=== PATIENT | male | born 1950 | race Caucasian/White ===

== ENCOUNTER 2020-05-08 09:38 | Inpatient (IN) ==
[2020-05-08] MEDS ORDERED: SODIUM CHLORIDE 0.9% 1000ML 1,000 ML IV ONE (10:07)
--- NOTE | 2020-05-08 10:10 | Emergency Department Note ---
Impression & Plan Sialadenitis, Hairy cell leukemia, Submandibular lymphadenitis, Pancytopenia ED Provider Note NAME: REBECCA BROWNLEE AGE: 69 SEX: M : 1950 ARRIVES VIA: Walk-In INFORMANT: Patient ED PROVIDER(S): Ihsan Pettit DO CHIEF COMPLAINT: Swelling of the left side of the neck HPI: Patient is a 69-year-old male who presents the ER for swelling of the left side of his neck. This past he had a filling replaced on his left posterior lower molar as had fallen out. He noticed swelling on the left side of his neck about 2 days ago below the jawline. He has lymphoma. He had a port placed yesterday by Dr. Valentin from the right side. He denies any fevers. No headache chest pain shortness of breath nausea vomiting or diarrhea. No loss of taste or smell. No other exacerbating or remitting factors. ROS: See above HPI for pertinent positives & negatives. A total of 10 systems reviewed and were otherwise negative. PAST MEDICAL HISTORY:See Below PAST SURGICAL HISTORY:See Below FAMILY HISTORY:See Below SOCIAL HISTORY:See Below HOME MEDICATIONS:See Below ALLERGIES:See Below VITALS:See Below PHYSICAL EXAMINATION: GENERAL: Sitting up in bed, alert, well appearing, well nourished, no distress, non-toxic EYE EXAM: normal conjunctiva. PERRL and EOM's grossly intact. OROPHARYNX: no exudate, no erythema, lips, buccal mucosa, and tongue normal and mucous membranes are moist NECK: supple, no nuchal rigidity, no adenopathy, non-tender.Swelling below the left mid mandible. CHEST: Port located along right upper chest tracking cephalad LUNGS: Clear to auscultation. Normal chest wall mechanics HEART: no murmurs, S1 normal and S2 normal ABDOMEN: abdomen soft, non-tender, normo-active bowel sounds, no masses, no rebound or guarding. UPPER EXTREMITIES: upper extremities are grossly normal. LOWER EXTREMITIES: No pitting edema. NEURO EXAM: Normal sensorium, cranial nerves II-XII grossly intact, normal speech, no gross weakness of arms, no gross weakness of legs. 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 IV was established blood work was obtained. Labs were obtained and showed a white cou nt of 900 and hemoglobin of 10 with an absolute neutrophil count of 600. BMP was unremarkable. T bili slightly elevated at 1.7. LFTs was unremarkable. CT neck shows questionable sialoadenitis with swelling encroaching on the airway. Patient with his neutropenia was given broad-spectrum IV antibiotics and IV fluids. Discussed with hospitalist and patient will be admitted for further work-up. He was given IV fluids, IV Zosyn and IV daptomycin. Triage Nursing notes reviewed. Prior medical records reviewed Vital Signs: reviewed and remarkable for no significant abnormalities Differential diagnosis: Differential diagnosis includes etiologies such as sepsis, UTI, pneumonia, metabolic, electrolyte abnormalities, cardiac sources, intracerebral event, toxicologic, neurological, as well as others were entertained. ER treatment provided: See below Diagnostics interpreted by me: ECG: none Cardiac Monitoring: An order was placed for continuous cardiac monitoring. The monitor shows a rate of 66 with sinus rhythm. Laboratory studies: As stated above and show below. Imaging studies: CT the neck as discussed above Consultation(s): Discussed with [facility] hospitalist for further evaluation Discussed with Dr. Yokr from hematology oncology agrees with admission and further evaluation ED COURSE: Procedures: none Critical Care: None Past Med/Surg History Medical History (Updated 05/08/20 @ 15:58 by Ihsan Pettit DO) Hairy cell leukemia [place] CHEMO 35 YEARS AGO (CURRENLTY DX WITH AGAIN) History of depression Hx of hematuria Surgical History Family history of malignant hyperthermia SECOND COUSIN DX WITH (NEVER HAD ANY ISSUES) History of cataract surgery RT History of colonoscopy History of cystoscopy History of tonsillectomy and adenoidectomy Tumor BENIGN TUMORS REMOVED FROM BACK Family History Brother Family hx colonic polyps Coronary heart disease Father Cancer Prostate Social History Smoking Status: Never smoker Second Hand Exposure: No; Do You Dip or Chew Tobacco: No; Tobacco Cessation Education Requested by Patient: No Hx Alcohol Use: No Hx Substance Use: No Preferred Language: Latvian Communication Ability: Effective Stage Technician Required: No Beliefs That Will Affect Care: None Current Living Situation: Alone Other Information That Helps Us Care for You: No Feels Safe at Home: Yes Safety Concerns: Feels Safe At This Time Assistive Devices: Glasses Allergies Allergies Allergy/AdvReac Type Severity Reaction Status Date / Time No Known Allergies Allergy Verified 05/08/20 11:46 Home Meds Home Medications Medication Instructions Recorded Confirmed Centrum Silver Ultra Men's 1 tab PO QDL 05/02/20 05/08/20 Results & Data (ED) Vital Signs Vital Signs - 24 hr 05/08/20 09:43 05/08/20 11:23 05/08/20 12:00 Temperature 37.2 C Temperature Source Oral Pulse Rate 78 71 Pulse Rate [Apical] 67 Pulse Rate from SpO2 Sensor 68 Respiratory Rate 18 18 16 Respiratory Effort / Characteristics Non-Labored Spontaneous Respiratory Depth Normal Blood Pressure 142/81 H 139/69 Blood Pressure [Right Arm] 134/69 Blood Pressure Mean 101 86 Blood Pressure Mean [Right Arm] 90 Blood Pressure Position Sitting Pulse Oximetry 99 97 98 Oxygen Delivery Method Room Air Room Air Room Air Sepsis Recent Fever Within 48 Hours No Sepsis New/Unexplained Change in Mental Status No Sepsis Action Taken by Nursing No Action Required 05/08/20 12:30 05/08/20 13:00 05/08/20 13:30 Temperature Temperature Source Pulse Rate 68 68 66 Pulse Rate [Apical] Pulse Rate from SpO2 Sensor 68 67 Respiratory Rate 15 16 18 Respiratory Effort / Characteristics Respiratory Depth Blood Pressure 135/70 Blood Pressure [Right Arm] Blood Pressure Mean 84 Blood Pressure Mean [Right Arm] Blood Pressure Position Pulse Oximetry 96 97 Oxygen Delivery Method Room Air Sepsis Recent Fever Within 48 Hours Sepsis New/Unexplained Change in Mental Status Sepsis Action Taken by Nursing 05/08/20 14:00 05/08/20 14:30 05/08/20 15:00 Temperature Temperature Source Pulse Rate 67 68 69 Pulse Rate [Apical] Pulse Rate from SpO2 Sensor Respiratory Rate 18 13 20 Respiratory Effort / Characteristics Respiratory Depth Blood Pressure 158/68 H Blood Pressure [Right Arm] Blood Pressure Mean 86 Blood Pressure Mean [Right Arm] Blood Pressure Position Pulse Oximetry Oxygen Delivery Method Sepsis Recent Fever Within 48 Hours Sepsis New/Unexplained Change in Mental Status Sepsis Action Taken by Nursing 05/08/20 15:18 05/08/20 15:30 Temperature Temperature Source Pulse Rate 66 Pulse Rate [Apical] Pulse Rate from SpO2 Sensor 67 Respiratory Rate 20 Respiratory Effort / Characteristics Respiratory Depth Blood Pressure Blood Pressure [Right Arm] Blood Pressure Mean Blood Pressure Mean [Right Arm] Blood Pressure Position Pulse Oximetry 97 96 Oxygen Delivery Method Room Air Room Air Sepsis Recent Fever Within 48 Hours Sepsis New/Unexplained Change in Mental Status Sepsis Action Taken by Nursing Laboratory Data Result diagrams: 05/08/20 11:24 05/08/20 11:24 Lab Results 05/08/20 05/08/20 05/08/20 Range/Units 11:24 11:24 11:24 WBC 0.91 L* (4.8-10.8) K/uL RBC 3.36 L (4.7-6.1) M/uL Hgb 10.1 L (14.0-18.0) g/dL Hct 30.5 L (42-52) % MCV 90.8 (80-100) fL MCH 30.1 (25-34) pg MCHC 33.1 (32-36) g/dL RDW Std Deviation 52.0 H (36.4-46.3) fL RDW Coeff of Dale 15.6 H (11.5-14.5) % Plt Count 43 L (130-400) K/uL MPV 8.2 (7.4-10.4) fL Immature Gran % (Auto) 0.0 % Neut % (Auto) 69.2 % Lymph % (Auto) 29.7 % [place] % (Auto) 1.1 % Eos % (Auto) 0.0 % Baso % (Auto) 0.0 % Neut # (Auto) 0.63 L* (1.4-6.5) K/uL Lymph # (Auto) 0.27 L (1.2-3.4) K/uL [place] # (Auto) 0.01 L (0.11-0.59) K/uL Eos # (Auto) 0.00 (0-0.5) K/uL Baso # (Auto) 0.00 (0-0.2) K/uL Immature Gran # (Auto) 0.00 (0.00-0.02) K/uL Tear Drop Cells 1+ Ovalocytes 1+ Sodium 138 (136-145) mmol/L Potassium 4.4 (3.5-5.1) mmol/L Chloride 105 (98-107) mmol/L Carbon Dioxide 31 (21-32) mmol/L Anion Gap 2.0 L (3-11) BUN 22 H (7-18) mg/dl Creatinine 1.14 (0.6-1.4) mg/dl Est Cr Clr Drug Dosing 71.6 ml/min Est GFR ( Amer) 75.1 Est GFR (Non-Af Amer) 64.8 BUN/Creatinine Ratio 19.1 (10-20) Glucose 101 H (70-99) mg/dl Calcium 8.6 (8.5-10.1) mg/dl Total Bilirubin 1.7 H (0.2-1) mg/dl Direct Bilirubin 0.3 H (0-0.2) mg/dl AST 16 (15-37) U/L ALT 28 (12-78) U/L Alkaline Phosphatase 58 (45-117) U/L Total Protein 6.8 (6.4-8.2) gm/dl Albumin 3.8 (3.4-5.0) gm/dl Globulin 3.0 (2.5-4.0) gm/dl Albumin/Globulin Ratio 1.3 (0.9-2) Administered Medications Dexamethasone (Dexamethasone Sod Inj 10 Mg/Ml Vial) 10 mg IV Q6H NGA Stop: 06/07/20 14:31 Last Admin: 05/08/20 15:15 Dose: 10 mg Documented by: [id number] Discontinued Medications Sodium Chloride (Nss 1000ml) 1,000 mls @ 999 mls/hr IV .Q1H1M ONE Stop: 05/08/20 11:07 Last Infusion: 05/08/20 12:21 Dose: 0 mls/hr Documented by: [id number] Admin: 05/08/20 11:20 Dose: 999 mls/hr Documented by: [id number] Piperacillin Sod/Tazobactam Sod (Zosyn) 4.5 gm in 120 mls @ 240 mls/hr IV NOW ONE Stop: 05/08/20 13:57 Last Infusion: 05/08/20 14:44 Dose: 0 mls/hr Documented by: [id number] Admin: 05/08/20 14:14 Dose: 240 mls/hr Documented by: [id number] Daptomycin 500 mg/ Syringe 10 mls @ 5 mls/min IV NOW ONE; Protocol Stop: 05/08/20 13:29 Last Admin: 05/08/20 14:12 Dose: 5 mls/min Documented by: [id number] Ioversol (Ioversol 100ml) 95 ml IV ONCE ONE Stop: 05/08/20 12:29 Last Admin: 05/08/20 12:28 Dose: 95 ml Documented by: [id number] Discharge Plan Visit Data Chief Complaint: Facial Injury/Pain Stated Complaint: LEUKEMIA PATIENT, INFECTION, NEEDS ANTIBIOTICS ED Provider: Ihsan Pettit Discharge Problem: Sialadenitis, Hairy cell leukemia, Submandibular lymphadenitis, Pancytopenia Discharge Instructions Interventions: ED Discharge Assessment Last Done: 05/08/20 15:33 Forms Stand Alone Forms: [employer] Prescriptions Prescriptions: No Action Centrum Silver Ultra Men's 300-600-300 mcg Tablet 1 tab PO QDL RF: 0 Referrals Referrals: Adrien Jones MD [Primary Care Provider] - Discharge Problem: Hairy cell leukemia Qualifiers: Leukemia Active/Remission status: without remission Qualified Code(s): C91.40 - Hairy cell leukemia not having achieved remission
[2020-05-08 11:53] LABS: Mean Corpuscular Hgb Conc 33.1 g/dL (32-36); Mean Platelet Volume 8.2 fL (7.4-10.4); Platelet Count 43 K/uL (130-400)
[2020-05-08 11:59] LABS: Albumin Level 3.8 gm/dl (3.4-5.0); BUN Creatinine Ratio 19.1 (10-20); Calcium 8.6 mg/dl (8.5-10.1); Creatinine Clr Calc Pharmacy 71.6 ml/min; Est GFR (African American) 75.1; Est GFR (Non-African American) 64.8; Hematocrit (blood only) 30.5 % (42-52); Hemoglobin 10.1 g/dL (14.0-18.0); Lymphocytes # (auto) 0.27 K/uL (1.2-3.4); Lymphocytes % (auto) 29.7 %; Mean Corpuscular Hemoglobin 30.1 pg (25-34); Mean Corpuscular Volume 90.8 fL (80-100); Monocytes # (auto) 0.01 K/uL (0.11-0.59); Monocytes % (auto) 1.1 %; Neutrophils # (auto) 0.63 K/uL (1.4-6.5); Neutrophils % (auto) 69.2 %; Potassium 4.4 mmol/L (3.5-5.1); RDW Coefficient of Variation 15.6 % (11.5-14.5); Red Blood Count 3.36 M/uL (4.7-6.1); White Blood Count 0.91 K/uL (4.8-10.8)
[2020-05-08 12:01] LABS: Albumin Globulin Ratio 1.3 (0.9-2); Bilirubin,Total 1.7 mg/dl (0.2-1); Total Protein 6.8 gm/dl (6.4-8.2)
[2020-05-08 12:03] LABS: Ovalocytes 1+; Tear Drop Cells 1+
[2020-05-08] MEDS ORDERED: IOVERSOL 100ml IV ONE (12:28)
--- NOTE | 2020-05-08 12:53 | CT Scan Report ---
CT soft tissue neck w con CT DOSE: 562.83 mGy.cm CLINICAL HISTORY: Left-sided neck swelling. History of dental procedure. Patient with CLL. TECHNIQUE: Helical images were acquired during intravenous administration of 95 cc of Optiray 320. A dose lowering technique was utilized adhering to the principles of ALARA. COMPARISON STUDY: None. FINDINGS: The visualized portions of the lung apices are unremarkable. No thyroid masses are visualized. There is edema within the left submandibular gland. There is also edema within the left sublingual gl and. The findings are consistent with a sialoadenitis. There is thickening of the platysmas muscle. There is subcutaneous edema within the left neck. There is mild mass effect on the left vallecula. There is minimal edema within the left parapharyngeal spac e. There are no pathologically enlarged cervical lymph nodes. No necrotic nodes are evident. There are no fluid collections suspicious for abscess. There are bilateral dental apical lucencies, but this is not likely the etiology of the patient's inf lammatory change. Inflammatory changes are present within the right axillary sinus. There is a right internal jugular central venous catheter. This study was reviewed with a fellow radiologist. IMPRESSION: 1. Inflammatory changes within the neck, characterized by subcutaneous edema, thickening of the platy smas muscle, mild left parapharyngeal space edema with mild mass effect on the left vallecula. In add ition there are inflammatory changes within the left submandibular gland and left submandibular gland . The findings are likely secondary to a sialoadenitis. 2. No evidence of focal soft tissue abscess 3. Bilateral dental apical lucencies, but this finding is not likely the etiology of the patient's in flammatory changes. ACT 112: Negative or not required by law. Electronically signed by: Romaine Pate M.D. 05/08/2020 12:52 PM
[2020-05-08] MEDS ORDERED: PIPERACILL/TAZOBAC CONSULT ACTIVE PRN (13:28)
[2020-05-08] MEDS ORDERED: DAPTOmycin 500 MG in SYRINGE 0 ML IV ONE (13:28)
[2020-05-08] MEDS ORDERED: PIPERACILLIN/TAZOBACTAM 4.5 GM/120 ML BAG IV ONE (13:28)
[2020-05-08] MEDS ORDERED: DEXAMETHASONE SOD INJ 10 MG/ML VIAL IV SCH (14:32)
--- NOTE | 2020-05-08 14:47 | History & Physical Report ---
Date of Service May 08, 2020 Assessment & Plan (1) Sialadenitis: (2) Submandibular lymphadenitis: This is a 69-year-old male who with significant past medical history hairy cell leukemia who presents to ED secondary to left-sided face/neck pain x3 days. Admit to PCU consulted ENT - Dr. Delaney - discussed with her continue IV antibiotics with Daptomycin and zosyn IV Dexamethasone 10mg q6hr - per Dr. 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 Gerardo Had port placed yesterday, plan to start chemo 05/14 (5) DVT prophylaxis: SCD/teds secondary to thrombocytopenia Disposition: Admit to PCU Follow-up: PCP Dr. Jones upon discharge Patient was seen and examined in collaboration with Dr. Landin, please see addendum History of Present Illness Chief Complaint: Left-sided face/neck pain x3 days. Primary Care Provider: Adrien Jones MD This is a 69-year-old male who with significant past medical history hairy cell leukemia who presents to ED secondary to left-sided face/neck pain x3 days. Of significance patient has a past medical history of hairy cell leukemia initially diagnosed in 1989. This is his third relapse. He had a port placed by Dr. Valentin yesterday. He follows with [facility] oncology. He had a dental appointment for a, "filling," 5 days ago. 2 days after the procedure he started to notice pain to left tooth where he had dental work done on his lower molar along with swelling to the face and neck. Swelling and pain progressed. He called his oncologist requesting antibiotics, but was referred back to his dentist. He was tired of going back and forth and therefore just came to ED. He denies any shortness of breath but does admit to mild difficulty swallowing. He denies any fever, chills, sweats, lightheadedness, dizziness, chest pain, shortness of breath, nausea, vomiting, diarrhea. He overall has had decreased appetite. He is to start chemotherapy next Thursday. He did not take any oral antibiotics prior to dental procedure. In ED patient remained hemodynamically stable. Lab abnormalities notable for neutropenia 0.91 with an ANC of 0.63, H&H 10.1 and 30.5, platelet 43, BUN 22, creatinine 1.14, glucose 101, total bilirubin 1.7. Soft tissue neck CT: Inflammatory changes within the neck, characterized by subcutaneous edema, thickening of the platysmas muscle, mild left parapharyngeal space edema with mild mass effect on the left vallecula. In addition there are inflammatory changes within the left submandibular gland and left submandibular gland. The findings are likely secondary to a sialoadenitis. 2. No evidence of focal soft tissue abscess 3. Bilateral dental apical lucencies, but this finding is not likely the etiology of the patient's inflammatory changes. Blood cultures were obtained and he was started on broad-spectrum IV antibiotics with daptomycin and Zosyn. Allergies Allergy/AdvReac Type Severity Reaction Status Date / Time No Known Allergies Allergy Verified 05/08/20 11:46 Home Medications Home Medications Medication Instructions Recorded Confirmed Type Centrum Silver Ultra Men's 1 tab PO QDL 05/02/20 05/08/20 History Past Med/Surg History Medical History (Updated 05/08/20 @ 15:58 by Ihsan Pettit DO) Hairy cell leukemia TX CHEMO 35 YEARS AGO (CURRENLTY DX WITH AGAIN) History of depression Hx of hematuria Surgical History Family history of malignant hyperthermia SECOND COUSIN DX WITH (NEVER HAD ANY ISSUES) History of cataract surgery RT History of colonoscopy History of cystoscopy History of tonsillectomy and adenoidectomy Tumor BENIGN TUMORS REMOVED FROM BACK Family History Brother Family hx colonic polyps Coronary heart disease Father Cancer Prostate Social History Smoking Status: Never smoker Second Hand Exposure: No; Do You Dip or Chew Tobacco: No; Tobacco Cessation Education Requested by Patient: No Hx Alcohol Use: No Hx Substance Use: No Preferred Language: Israeli Communication Ability: Effective Anodic Treater Required: No Beliefs That Will Affect Care: None Current Living Situation: Alone Other Information That Helps Us Care for You: No Feels Safe at Home: Yes Safety Concerns: Feels Safe At This Time Assistive Devices: Glasses Review of Systems Review of Systems: All systems reviewed & are unremarkable except as noted in HPI & below Physical Exam Physical Exam: Constitutional: WD/WN, male, vitals as above, NAD, sitting up in bed, pleasant, conversing easily Head: Normocephalic, Atraumatic Eyes: PERRL, conjunctivae normal, anicteric sclerae ENMT: external ear and nose normal, left buccal/parotid swelling, firm and tender to palpation, left submandibular adenopathy painful to palpation Neck: trachea midline, no thyromegaly normal visual inspection Respiratory: normal respiratory effort, lungs clear to auscultation, no wheeze, rales, rhonchi. Normal insp/exp effort, no accessory muscle use Cardiovascular: RRR, no murmur, no edema Vessels: no JVD or carotid bruit Chest: Right anterior chest wall Port-A-Cath in place, normal inspection of chest Abdomen: normal bowel sounds, soft, nontender, no hepatosplenomegaly Musculoskeletal: no cyanosis or clubbing, extremities motor strength 5/5 Skin: no rashes, warm and dry normal turgor Neurologic: PERRL, EOMI, accommodation nl, no face palsy, no dysarthria CN's II-XI intact bilaterally and moves all extremities Psychiatric: A+Ox3, euthymic affect : deferred Results & Data Results & Data ([facility]) Vital Signs (Past 12 Hours) Vital Signs Temp Pulse Pulse Resp BP BP Pulse Ox 05/08/20 14:00 67 18 05/08/20 13:30 66 18 97 05/08/20 13:00 68 16 135/70 96 05/08/20 12:30 68 15 05/08/20 12:00 71 16 139/69 98 05/08/20 11:23 67 18 134/69 97 05/08/20 09:43 37.2 C 78 18 142/81 H 99 Laboratory Results Short CBC 05/08/20 05/08/20 Range/Units 11:24 11:24 WBC 0.91 L* (4.8-10.8) K/uL Hgb 10.1 L (14.0-18.0) g/dL Hct 30.5 L (42-52) % Plt Count 43 L (130-400) K/uL Total Bilirubin 1.7 H (0.2-1) mg/dl BMP 05/08/20 11:24 Sodium 138 Potassium 4.4 Chloride 105 Carbon Dioxide 31 BUN 22 H Creatinine 1.14 Glucose 101 H Calcium 8.6 Liver Function 05/08/20 Range/Units 11:24 Total Bilirubin 1.7 H (0.2-1) mg/dl AST 16 (15-37) U/L ALT 28 (12-78) U/L Alkaline Phosphatase 58 (45-117) U/L Albumin 3.8 (3.4-5.0) gm/dl Diagnostic Findings Soft tissue Neck CT: IMPRESSION: 1. Inflammatory changes within the neck, characterized by subcutaneous edema, thickening of the platysmas muscle, mild left parapharyngeal space edema with mild mass effect on the left vallecula. In addition there are inflammatory changes within the left submandibular gland and left submandibular gland. The findings are likely secondary to a sialoadenitis. 2. No evidence of focal soft tissue abscess 3. Bilateral dental apical lucencies, but this finding is not likely the etiology of the patient's inflammatory changes. Code Status & VTE Plan Code Status Full Code VTE Prophylaxis Plan VTE Prophylaxis will be ordered: Yes Supervising Physician Co-Signing Physician Notes Attending Addendum: care coordinated with ANNALEE Maxwell please refer to her notes for full details, I agree with her notes patient seen and examined, records reviewed by myself as well on exam, patient Seen resting in bed, not in distress Patient frustrated because his phone calls to [facility] outpatient clinic have not been returned, and is concerned about miscommunication with the staff Patient reassured, discussed with RN coordinator Jl, who will speak with patient tomorrow and establish outpatient case management for patient He reports moderate discomfort over the left cheek/submandibular area which started from pain and his tooth, left lower jaw, after dental filling was performed last week Denies shortness of breath, dysphagia, trismus Reports occasional chills no other symptoms VS noted and reviewed oriented x 3, not in distress, speaks in sentences with no effort nor accessory muscle use Head and neck: Oral mucosa-mild edema left buccal mucosa, No gingival swelling, bleeding or discharge noted Feeling on the second to last molar of the left mandible Neck-left neck-moderate edema of the left cheek and submandibular area, positive lymphadenopathy in the left submandibular region, with mild tenderness normal rate, regular rhythm, no murmurs clear breath sounds bilaterally non distended, soft, nontender no bipedal edema, erythema, warmth no neuro deficits WBC 0.9 Hg 10[address] soft tissue neck:1. Inflammatory changes within the neck, characterized by subcutaneous edema, thickening of the platysmas muscle, mild left parapharyngeal space edema with mild mass effect on the left vallecula. In addition there are inflammatory changes within the left submandibular gland and left submandibular gland. The findings are likely secondary to a sialoadenitis. 2. No evidence of focal soft tissue abscess 3. Bilateral dental apical lucencies, but this finding is not likely the etiology of the patient's inflammatory changes. ASSESSMENT AND PLAN Left neck swelling, likely secondary to cellulitis, possible odontogenic infection, abscess In the setting of neutropenia, leukemia -- Discussed with ENT Dr. Leatha Almanza and Franko Altamirano every 6 hours Follow-up cultures Maxillofacial surgeon Dr. Macario also consulted Hairy cell Leukemia, pancytopenia Neutropenic precautions Monitor Follows with Dr. Gerardo other diagnoses and plan of care as per ANNALEE Maxwell's notes Plan of care discussed with patient in detail and at length All questions were answered He is understanding, agreeable, comfortable plan of care Jake Landin MD
--- NOTE | 2020-05-08 15:17 | ENT Consultation ---
Date of Consultation May 08, 2020 Assessment & Plan (1) Sialadenitis: - admit on broad spectrum IV abx and dexamethasone 10mg q 6 for first 24 hours, then taper to q8 -continuous pulse ox, low threshold to transfer to ICU -if patient requires intubation, glidescope or fiberoptic recommended -warm compresses tid with massage of bilateral SMG -NPO for now, if OMFS deems nothing needed to do from their standpoint, could advance diet in 24-36hours if symptoms improved -consider OMFS consult given poor dental hygiene especially on left along with history of recent dental infection -f/u clinic in 4-6 weeks Present on Admission?: Yes History of Present Illness Reason for Consultation: left SMG sialdenitis in setting of recent molar infection History of Present Illness Patients states he had work done on one of his left mandibular molars and started having left neck pain over the past week and a half. No difficulty b reathing, no difficulty swallowing or handling his own secretions. Allergies Allergy/AdvReac Type Severity Reaction Status Date / Time No Known Allergies Allergy Verified 05/08/20 11:46 Home Medications Home Medications Medication Instructions Recorded Confirmed Type Centrum Silver Ultra Men's 1 tab PO QDL 05/02/20 05/08/20 History Patient History Medical History Hairy cell leukemia TX CHEMO 35 YEARS AGO (CURRENLTY DX WITH AGAIN) History of depression Hx of hematuria Surgical History Family history of malignant hyperthermia SECOND COUSIN DX WITH (NEVER HAD ANY ISSUES) History of cataract surgery RT History of colonoscopy History of cystoscopy History of tonsillectomy and adenoidectomy Tumor BENIGN TUMORS REMOVED FROM BACK Family History Brother Family hx colonic polyps Coronary heart disease Father Cancer Prostate Social History Smoking Status: Never smoker Second Hand Exposure: No; Do You Dip or Chew Tobacco: No; Tobacco Cessation Education Requested by Patient: No Hx Alcohol Use: No Hx Substance Use: No Preferred Language: Lithuanian Communication Ability: Effective Electric Plater Required: No Beliefs That Will Affect Care: None Current Living Situation: Alone Other Information That Helps Us Care for You: No Feels Safe at Home: Yes Safety Concerns: Feels Safe At This Time Assistive Devices: Glasses Review of Systems Review of Systems: All systems reviewed & are unremarkable except as noted in HPI & below Physical Exam Physical Exam: General: AAOx3, normal voice, no SOB or stridor Oral cavity: floor of mouth is soft, unable to express any purulence from SMG papilla, there does appear to be inflammation along the left mandibular gum line, patient overall has poor dentition. No trismus. Neck: SMG is firm on the left, no overlying skin changes Procedure: Flexible nasopharyngoscopy was performed. Nasopharynx wnl. Patient has some billowy edema of the left pharyngeal wall moving into the vallecula, airway is still patent, vocal cords mobile Results & Data ([facility]) Vital Signs (Past 12 Hours) Vital Signs Temp Pulse Pulse Resp BP BP Pulse Ox 05/08/20 14:00 67 18 05/08/20 13:30 66 18 97 05/08/20 13:00 68 16 135/70 96 05/08/20 12:30 68 15 05/08/20 12:00 71 16 139/69 98 05/08/20 11:23 67 18 134/69 97 05/08/20 09:43 37.2 C 78 18 142/81 H 99
[2020-05-08] MEDS ORDERED: ONDANSETRON INJ 2 MG/ML 2 ML VIAL IV PRN (16:12)
[2020-05-08] MEDS ORDERED: ACETAMINOPHEN 325 MG TAB PO PRN (16:12)
[2020-05-08] MEDS ORDERED: MAGNESIUM HYDROXIDE SUSP 30 ML UDC PO PRN (16:12)
[2020-05-08] MEDS ORDERED: POLYETHYLENE (MIRALAX) 17 GM PACK PO PRN (16:12)
[2020-05-08] MEDS ORDERED: ALUMINUM/MAGNESIUM SUSP 30 ML UDC PO PRN (16:12)
[2020-05-08] MEDS ORDERED: CONSULT PHARMACY STA (16:12)
[2020-05-08] MEDS: SODIUM CHLORIDE 0.9% 1000ML 1,000 ML IV SCH (16:39)
[2020-05-08] MEDS: PIPERACILLIN/TAZOBACTAM 3.375 GM in DEXTROSE 5% 100 ML IV SCH (19:43)
[2020-05-08] MEDS: DEXAMETHASONE SOD PHOSPHATE 10 MG in SYRINGE 0 ML IV SCH (22:04)
[2020-05-09] MEDS: PIPERACILLIN/TAZOBACTAM 3.375 GM in DEXTROSE 5% 100 ML IV SCH ×3 (04:28→20:23)
[2020-05-09] MEDS: SODIUM CHLORIDE 0.9% 1000ML 1,000 ML IV SCH (04:28)
[2020-05-09] MEDS: DEXAMETHASONE SOD PHOSPHATE 10 MG in SYRINGE 0 ML IV SCH ×4 (04:29→22:09)
[2020-05-09 07:51] LABS: Hematocrit (blood only) 32.1 % (42-52); Hemoglobin 10.6 g/dL (14.0-18.0); Mean Corpuscular Hemoglobin 29.4 pg (25-34); Mean Corpuscular Volume 88.9 fL (80-100); RDW Coefficient of Variation 15.2 % (11.5-14.5); RDW Standard Deviation 49.6 fL (36.4-46.3); Red Blood Count 3.61 M/uL (4.7-6.1); White Blood Count 1.01 K/uL (4.8-10.8)
[2020-05-09 08:07] LABS: Mean Platelet Volume 9.3 fL (7.4-10.4); Platelet Count 53 K/uL (130-400)
[2020-05-09 08:23] LABS: Albumin Level 3.6 gm/dl (3.4-5.0); BUN Creatinine Ratio 25.3 (10-20); Calcium 8.1 mg/dl (8.5-10.1); Creatinine Clr Calc Pharmacy 80.3 ml/min; Est GFR (African American) 94.8; Est GFR (Non-African American) 81.8; Lymphocytes # (auto) 0.18 K/uL (1.2-3.4); Lymphocytes % (auto) 17.8 %; Monocytes # (auto) 0.01 K/uL (0.11-0.59); Neutrophils # (auto) 0.82 K/uL (1.4-6.5); Neutrophils % (auto) 81.2 %; Ovalocytes 1+; Potassium 4.3 mmol/L (3.5-5.1); Tear Drop Cells 1+
[2020-05-09 08:26] LABS: Albumin Globulin Ratio 1.1 (0.9-2); Bilirubin,Total 1.4 mg/dl (0.2-1); Globulin 3.1 gm/dl (2.5-4.0); Total Protein 6.7 gm/dl (6.4-8.2)
--- NOTE | 2020-05-09 09:11 | Surgery Consultation ---
Date of Consultation Oral Maxillofacial Surgery Exam Present Complaint: I had pain/swelling/from lower left molar--after the IV antibiotics much improved and no dental pain while chewing. Symptoms have been ongoing for a while they would come and go ( tooth # 18 lower left second molar). Present symptoms Developed after a dental procedure on tooth # 18 recently. By History: Submandibular swelling left side developed a few days after dental procedure on # 18 Now very soft w/o and fluid collection slightly larger then the normal right side gland. Saliva is very clear from the duct upon massage of the left submand. gland with only slight discomfort. No Tooth issues noted #lower left side: A detailed oral exam was completed. Finding-as above No active infection. Overall dental care is excellent, No periodontal issues, No bleeding Gums, teeth well repaired. CT reviewed--difficult to get a true picture of the teeth and associated bone and would suggest routine dental X Rays if needed. Presently -No of the teeth are symptomatic to pressure or palpation/Temp. changes=No active dental issues upon bedside exam Soft tissue of the floor of the mouth, tongue, hard/soft palate, posterior pharyngeal area all with in normal limits, no pathology or abnormal findings noted. slight enlargement left submand gland =saliva is very clear- Cancer exam--No lesions noted that require follow up or Bx. Oral Care---Overall oral care is good Occlusion---Class I TMJ exam: No pop, clicking, pain, good ROM, No history of TMJ injury or dysfunction Periodontal exam---good Plan: No active dental issue, resolving submandibular swelling most likely associated with recent dental treatment of tooth # 18, tooth now asymptomatic. I see no active dental issues that would interfere with the planned course of Chemo next week. If the swelling or dental pain should re occur dental X Rays are needed to r/o a periapical lesion that would require either extraction or a root canal. I reviewed the treatment plan and consent with the patient --oral antibiotics and dental follow up with dentist if symptoms develop. Understanding was expressed. Time was given for questions regarding the surgery, risks and post op care. 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 AGO (CURRENLTY DX WITH AGAIN) History of depression Hx of hematuria Surgical History Family history of malignant hyperthermia SECOND COUSIN DX WITH (NEVER HAD ANY ISSUES) History of cataract surgery RT History of colonoscopy History of cystoscopy History of tonsillectomy and adenoidectomy Tumor BENIGN TUMORS REMOVED FROM BACK Family History Brother Family hx colonic polyps Coronary heart disease Father Cancer Prostate Social History Smoking Status: Never smoker Second Hand Exposure: No; Do You Dip or Chew Tobacco: No; Tobacco Cessation Education Requested by Patient: No Hx Alcohol Use: No Hx Substance Use: No Preferred Language: Swedish Communication Ability: Effective Day Care Worker Required: No Beliefs That Will Affect Care: None Current Living Situation: Alone Other Information That Helps Us Care for You: No Feels Safe at Home: Yes Safety Concerns: Feels Safe At This Time Assistive Devices: Glasses Results & Data ([facility]) Vital Signs (Past 12 Hours) Vital Signs Temp Pulse Pulse Resp BP Pulse Ox 05/09/20 07:44 36.5 C 56 L 19 128/69 96 05/09/20 07:16 59 L 05/09/20 04:33 36.3 C L 60 18 130/70 97 05/09/20 00:07 36.3 C L 60 17 125/73 98 05/08/20 23:57 62 PG Care Time/CCT Total # of Minutes Spent Total Time Spent with Patient: Total time spent is greater than 50% in coord ination of care (as documented) at patient's floor/unit and/or counseling patient: Coding Level of Care Code 84212 Inpt Consult Level 3
[2020-05-09] MEDS: DAPTOmycin 325 MG in SYRINGE 0 ML IV SCH (13:31)
--- NOTE | 2020-05-09 22:22 | Hospitalist Progress Note ---
Date of Service May 09, 2020 Assessment & Plan (1) Sialadenitis: Presented with left submandibular pain & swelling. Seen by ENT and Oral Maxillofacial Surgery. Imaging and exam consistent with sialadenitis. Receiving daptomycin, piperacillin / tazobactam, dexamethasone with improvement. Start clear liquids. (2) Hairy cell leukemia: Per Hematology / Oncology. 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 Follow. (4) DVT prophylaxis: No chemoprophylaxis because of thrombocytopenia. SCD's. Ambulate. (5) Discharge planning issues: Anticipated discharge to home. Family Medicine follow-up with Dr. Jones. Hematology / Oncology follow-up with Dr. Gerardo. Admission and Anticipated Discharge Date Admission Date: May 08, 2020 Subjective Recheck for sialadenitis and other problems. Patient seen in their room around 1150. Feels better. Left jaw pain & swelling improved. No fever. No difficulty swallowing. No cough or SOB. Review of Systems: Constitutional- as noted above. Cardiac- no chest pain. Pulmonary- as noted above. GI- no nausea, vomiting, diarrhea, melena, hematochezia. - no urinary symptoms. Otherwise, as noted above. Physical Exam Constitutional: no acute distress ENMT: mild left submandibular swelling and tenderness Respiratory: no respiratory distress Auscultation: lungs clear to auscultation bilaterally Cardiovascular: Rate/Rhythm: regular rate and regular rhythm Vessels: no JVD Extremities: no calf tenderness and no edema Gastrointestinal (Abdomen): normal bowel sounds, soft, nontender, no hepatosplenomegaly Musculoskeletal: Extremities: no cyanosis Skin: no rashes, warm and dry Psychiatric: Orientation: alert and oriented x 3 Results & Data Results & Data ([facility]) Vital Signs (Past 12 Hours) Vital Signs Temp Pulse Pulse Resp BP Pulse Ox 05/09/20 19:43 36.5 C 65 18 142/68 H 97 05/09/20 16:00 72 05/09/20 14:56 36.8 C 65 20 133/73 97 05/09/20 11:22 37.0 C 68 19 158/76 H 98 Laboratory Results 05/09/20 06:45 05/09/20 06:45 Microbiology 05/08/20 14:04 Blood Aerobic Blood Culture - Preliminary No growth in Aerobic bottle after 24 hours. 05/08/20 14:04 Blood Anaerobic Blood Culture - Preliminary No growth in Anaerobic bottle after 24 hours. 05/08/20 14:03 Blood Aerobic Blood Culture - Preliminary No growth in Aerobic bottle after 24 hours. 05/08/20 14:03 Blood Anaerobic Blood Culture - Preliminary No growth in Anaerobic bottle after 24 hours. (1) Hairy cell leukemia Leukemia Active/Remission status: without remission Qualified Code(s): C91.40 - Hairy cell leukemia not having achieved remission
[2020-05-10] MEDS: PIPERACILLIN/TAZOBACTAM 3.375 GM in DEXTROSE 5% 100 ML IV SCH ×3 (04:28→19:14)
[2020-05-10] MEDS: DEXAMETHASONE SOD PHOSPHATE 10 MG in SYRINGE 0 ML IV SCH ×2 (04:28→10:12)
[2020-05-10 06:19] LABS: Hematocrit (blood only) 31.6 % (42-52); Hemoglobin 10.6 g/dL (14.0-18.0); Mean Corpuscular Hemoglobin 29.6 pg (25-34); Mean Corpuscular Hgb Conc 33.5 g/dL (32-36); Mean Corpuscular Volume 88.3 fL (80-100); RDW Coefficient of Variation 15.2 % (11.5-14.5); RDW Standard Deviation 49.2 fL (36.4-46.3); Red Blood Count 3.58 M/uL (4.7-6.1); White Blood Count 1.38 K/uL (4.8-10.8)
[2020-05-10 06:22] LABS: Platelet Count 56 K/uL (130-400)
[2020-05-10 06:39] LABS: Lymphocytes # (auto) 0.33 K/uL (1.2-3.4); Lymphocytes % (auto) 23.9 %; Monocytes # (auto) 0.01 K/uL (0.11-0.59); Monocytes % (auto) 0.7 %; Neutrophils # (auto) 1.04 K/uL (1.4-6.5); Neutrophils % (auto) 75.4 %
[2020-05-10 06:51] LABS: Calcium 8.2 mg/dl (8.5-10.1); Creatinine Clr Calc Pharmacy 71.2 ml/min; Est GFR (Non-African American) 70.8; Potassium 4.4 mmol/L (3.5-5.1)
[2020-05-10 06:53] LABS: C Reactive Protein 1.16 mg/dl (0-0.29)
--- NOTE | 2020-05-10 13:08 | Hospitalist Progress Note ---
Date of Service May 10, 2020 Assessment & Plan (1) Sialadenitis: Presented with left submandibular pain & swelling. Seen by ENT and Oral Maxillofacial Surgery. Imaging and exam consistent with sialadenitis. Receiving daptomycin, piperacillin / tazobactam, dexamethasone with improvement. No airway problems or difficulty swallowing. Tolerating clear liquids. Advance diet as tolerated. CRP 1.16. Procalcitonin < 0.05. (2) Hairy cell leukemia: Per Hematology / Oncology. 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 Follow. (4) DVT prophylaxis: No chemoprophylaxis because of thrombocytopenia. SCD's. Ambulate. (5) Discharge planning issues: Anticipated discharge to home. Family Medicine follow-up with Dr. Jones. Hematology / Oncology follow-up with Dr. Gerardo. ENT follow-up with Dr. Delaney in 4-6 weeks. Admission and Anticipated Discharge Date Admission Date: May 08, 2020 Subjective Recheck for sialadenitis and other problems. Patient seen in their room around 1100. Left jaw pain & swelling improved. No fever. No difficulty swallowing. No cough or SOB. Tolerating clear liquid diet. Review of Systems: Constitutional- as noted above. Cardiac- no chest pain. Pulmonary- as noted above. GI- no nausea, vomiting, diarrhea, melena, hematochezia. - no urinary symptoms. Otherwise, as noted above. Physical Exam Constitutional: no acute distress ENMT: left submandibular swelling improved Respiratory: no respiratory distress Auscultation: lungs clear to auscultation bilaterally Cardiovascular: Rate/Rhythm: regular rate and regular rhythm Vessels: no JVD Extremities: no calf tenderness and no edema Gastrointestinal (Abdomen): normal bowel sounds, soft, nontender, no hepatosplenomegaly Musculoskeletal: Extremities: no cyanosis Skin: no rashes, warm and dry Psychiatric: Orientation: alert and oriented x 3 Results & Data Results & Data ([facility]) Vital Signs (Past 12 Hours) Vital Signs Temp Pulse Pulse Pulse Resp BP BP 05/10/20 12:00 36.7 C 62 18 123/66 05/10/20 08:00 36.5 C 56 L 18 134/73 05/10/20 07:13 55 L 05/10/20 04:05 36.3 C L 56 L 16 127/68 Pulse Ox 05/10/20 12:00 98 05/10/20 08:00 99 05/10/20 07:13 05/10/20 04:05 99 Laboratory Results 05/10/20 05:50 05/10/20 05:50 (1) Hairy cell leukemia Leukemia Active/Remission status: without remission Qualified Code(s): C91.40 - Hairy cell leukemia not having achieved remission
[2020-05-10] MEDS: DAPTOmycin 325 MG in SYRINGE 0 ML IV SCH (13:27)
[2020-05-10] MEDS: dexAMETHasone 6 MG in SYRINGE 0 ML IV SCH (21:06)
[2020-05-11] MEDS: PIPERACILLIN/TAZOBACTAM 3.375 GM in DEXTROSE 5% 100 ML IV SCH ×2 (03:02→13:31)
[2020-05-11] MEDS: dexAMETHasone 6 MG in SYRINGE 0 ML IV SCH (09:53)
--- NOTE | 2020-05-11 11:39 | Hospitalist Progress Note ---
Date of Service May 11, 2020 Assessment & Plan (1) Sialadenitis: Presented with left submandibular pain & swelling. Seen by ENT and Oral Maxillofacial Surgery. Imaging and exam consistent with sialadenitis. Received daptomycin, piperacillin / tazobactam, dexamethasone with improvement. Initially kept NPO; diet advanced and tolerated. No airway problems or difficulty swallowing. CRP 1.16. Procalcitonin < 0.05 on 05/10. Transition antibiotic therapy to amoxicillin / clavulanic acid BID to complete 14 day course of therapy. Transition steroid therapy to methylprednisolone taper x 6 days. (2) Hairy cell leukemia: Per Hematology / Oncology. (3) Pancytopenia: WBC 1200 --> 1380 ANC 630 --> 1040. Hgb 11.6 --> 10.6 Plts 36 K --> 56K. Pancytopenia secondary to hairy cell leukemia. Follow. (4) DVT prophylaxis: No chemoprophylaxis because of thrombocytopenia. SCD's. Ambulate. (5) Discharge planning issues: Discharge to home. Family Medicine follow-up with Dr. Jones. Hematology / Oncology follow-up with Dr. Gerardo. ENT follow-up with Dr. Delaney in 4-6 weeks. Admission and Anticipated Discharge Date Admission Date: May 08, 2020 Subjective Recheck for sialadenitis and other problems. Patient seen in their room around 1130. Left jaw pain & swelling much better. No fever. No difficulty swallowing. No cough or SOB. Tolerating diet. No nausea, vomiting, diarrhea. Physical Exam Constitutional: no acute distress ENMT: left facial / submandibular swelling & tenderness resolved Respiratory: no respiratory distress Auscultation: lungs clear to auscult ation bilaterally Cardiovascular: Rate/Rhythm: regular rate and regular rhythm Vessels: no JVD Extremities: no calf tenderness and no edema Gastrointestinal (Abdomen): normal bowel sounds, soft, nontender, no hepat osplenomegaly Musculoskeletal: Extremities: no cyanosis Skin: no rashes, warm and dry Psychiatric: Orientation: alert and oriented x 3 Results & Data Results & Data ([facility]) Vital Signs (Past 12 Hours) Vital Signs Temp Pulse Resp BP Pulse Ox 05/11/20 07:40 36.3 C L 53 L 14 126/65 98 Laboratory Results Microbiology 05/08/20 14:04 Blood Aerobic Blood Culture - Preliminary No growth in Aerobic bottle after 48 hours. 05/08/20 14:04 Blood Anaerobic Blood Culture - Preliminary No growth in Anaerobic bottle after 48 hours. 05/08/20 14:03 Blood Aerobic Blood Culture - Preliminary No growth in Aerobic bottle after 48 hours. 05/08/20 14:03 Blood Anaerobic Blood Culture - Preliminary No growth in Anaerobic bottle after 48 hours. (1) Hairy cell leukemia Leukemia Active/Remission status: without remission Qualified Code(s): C91.40 - Hairy cell leukemia not having achieved remission
--- NOTE | 2020-05-11 13:09 | Discharge Summary ---
Date of Service Date of Admission: 05/08/20 Date of Discharge: 05/11/20 Admission HPI Per Admitting Provider This is a 69-year-old male who with significant past medical history hairy cell leukemia who presents to ED secondary to left-sided face/neck pain x3 days. Of significance patient has a past medical history of hairy cell leukemia initially diagnosed in 1989. This is his third relapse. He had a port placed by Dr. Valentin yesterday. He follows with [facility] oncology. He had a dental appointment for a, "filling," 5 days ago. 2 days after the procedure he started to notice pain to left tooth where he had dental work done on his lower molar along with swelling to the face and neck. Swelling and pain progressed. He called his oncologist requesting antibiotics, but was referred back to his dentist. He was tired of going back and forth and therefore just came to ED. He denies any shortness of breath but does admit to mild difficulty swallowing. He denies any fever, chills, sweats, lightheadedness, dizziness, chest pain, shortness of breath, nausea, vomiting, diarrhea. He overall has had decreased appetite. He is to start chemotherapy next Thursday. He did not take any oral antibiotics prior to dental procedure. In ED patient remained hemodynamically stable. Lab abnormalities notable for neutropenia 0.91 with an ANC of 0.63, H&H 10.1 and 30.5, platelet 43, BUN 22, creatinine 1.14, glucose 101, total bilirubin 1.7. Soft tissue neck CT: Inflammatory changes within the neck, characterized by subcutaneous edema, thickening of the platysmas muscle, mild left parapharyngeal space edema with mild mass effect on the left vallecula. In addition there are inflammatory changes within the left submandibular gland and left submandibular gland. The findings are likely secondary to a sialoadenitis. 2. No evidence of focal soft tissue abscess 3. Bilateral dental apical lucencies, but this finding is not likely the etiology of the patient's inflammatory changes. Blood cultures were obtained and he was started on broad-spectrum IV antibiotics with daptomycin and Zosyn. Principal Diagnosis sialadenitis left submandibular gland OTHER ACUTE DIAGNOSES: pancytopenia anemia thrombocytopenia neutropenia Discharge Data Allergies Allergy/AdvReac Type Severity Reaction Status Date / Time No Known Allergies Allergy Verified 05/08/20 11:46 Consultations 05/08/20 13:40 ED Decision to Admit Stat 05/08/20 14:57 Consult Otolaryngology (Head and Neck) Routine 05/08/20 15:16 Consult Oromaxillofacial Surgery Routine Ordered Studies 05/08/20 10:06 CT soft tissue neck w con Stat Hospital Course (1) Sialadenitis: Presented with left submandibular pain & swelling. Had recent dental work performed (replacement of filling). Seen by ENT and Oral Maxillofacial Surgery. Imaging and exam consistent with sialadenitis of left submandibular gland. Received daptomycin, piperacillin / tazobactam, dexamethasone with improvement. Initially kept NPO; diet advanced and tolerated. No airway problems or difficulty swallowing. CRP 1.16. Procalcitonin < 0.05 on 05/10. Transitioned antibiotic therapy to amoxicillin / clavulanic acid BID to complete 14 day course of therapy. Transitioned steroid therapy to methylprednisolone taper x 6 days. (2) Hairy cell leukemia: Per Hematology / Oncology. (3) Pancytopenia: WBC 1200 --> 1380 ANC 630 --> 1040. Hgb 11.6 --> 10.6 Plts 36 K --> 56K. Pancytopenia secondary to hairy cell leukemia. Follow. (4) DVT prophylaxis: No chemoprophylaxis because of thrombocytopenia. SCD's. Ambulating. (5) Discharge planning issues: Discharged to home. Family Medicine follow-up with Dr. Jones. Hematology / Oncology follow-up with Dr. Gerardo. ENT follow-up with Dr. Delaney in 4-6 weeks. Total Time Total Time Spent Total Time Spent (In Minutes): 40 Discharge Plan Discharge Items Patient Disposition: Home - Self-Care Reason For Visit: swelling of neck and face Discharge Diagnosis: sialadenitis (infection and swelling of salivary gland) Activity: Resume your previous activity Non-emergency contact: Primary Care Provider, Hospitalist and Oncologist Call non-emergency contact if: you have any medication questions, your symptoms worsen and your temperature is above 101 Follow-up/Referrals: Adrien Jones MD [Primary Care Provider] - (Date & Time 05/16/2020 2:00 PM Provider Adrien Jones III, MD Department [facility] ) Zafar Gerardo MD [Hospitalist] - Morena Delaney MD [Surgeon] - (Date & Time 06/12/2020 8:45 AM Provider Morena Delaney MD Department Otolaryngology [facility] ) Diet: Regular Addtl Attending Provider Instructions: MEDICATION CHANGES: amoxicillin / clavulanic acid (Augmentin) take 1 pill twice a day with food until gone (antibiotic for salivary gland infection) methylprednisolone (Medrol) start Saturday 05/12 and taper: 05/12 6 pills (take all pills at once with food) 05/13 5 pills 05/14 4 pills 05/15 3 pills 05/14 2 pills 05/13 1 pill (steroid to treat inflammation in salivary gland) SUMMARY OF TEST RESULTS: CT scan showed swelling of left neck and salivary gland. Blood cultures were negative (no sign of infection in blood stream). OTHER INSTRUCTIONS: Drink plenty of fluids. Most antibiotics can potentially cause a severe type of diarrhea called Clostridium difficile ("C diff"). Seek medical attention if you have loose stools 3 or more times a day. Yogurt (with active culture) contains probiotics and may help prevent diarrhea. (Would not recommend other probiotic supplements because some probiotics can cause infection if the immune system is not working optimally.) Seek medical attention if you have: * recurrent swelling of face or neck * toothache * trouble swallowing * temperature above 101 * chest pain or trouble breathing * abdominal pain, nausea, vomiting * diarrhea, dark stools or bloody stools * any unanswered questions or concerns Call 911 if symptoms are severe. Please take good care of yourself. Call if you have any questions or problems. You can reach a [facility] hospitalist on duty at [facility] 24 hours a day by calling [phone]. My cell # is [phone]. Pending Studies at Discharge: No Stand-Alone Forms: My [facility], Smoking Cessation Medications and DC Order Prescriptions: New methylprednisolone [Medrol ([place])] 4 mg tablets,dose pack See Rx Instructions .ROUTE .COMPLEX Qty: 21 RF: 0 amoxicillin-pot clavulanate 875-125 mg tablet 1 tab PO BID Qty: 21 RF: 0 Continued Centrum Silver Ultra Men's 300-600-300 mcg Tablet 1 tab PO QDL RF: 0 Discharge Orders: Discharge Order (Routine); Ordered 05/11/20 Ordered By: Adrien Yanez/Other Patient Handouts: ED Salivary Gland Infection, Amoxicillin Clavulanic Acid tablets, Methylprednisolone tablets Admission Data Admit Date/Time: 05/08/20 13:58 Attending Provider: Adrien Salvador Admit Provider: Jake Landin Primary Care Provider: Adrien Jones Other Providers: Jake Landin ; Morena Delaney ; Brandon Macario
--- NOTE | 2020-05-11 17:13 | Communication Note ---
Date of Service: May 11, 2020 Received call from patient benefits representative that patient had called her and left a message. She tried to call him back, but did not get an answer. I tried to call him to make sure that everything was OK. No answer. Voice message left with my call-back phone #.
== END 2020-05-11 14:57 | disposition home or self-care (01) | DRG 155 ==
LOC: ED 09:38 → SUATTDRO 13:58 → 2S 13:58 → 3E 05-10 16:32

== ENCOUNTER 2020-08-01 15:30 | Observation (INO) ==
[2020-08-01] MEDS ORDERED: STAT IV Infusion **Titration per Protocol STA (15:49)
[2020-08-01] MEDS ORDERED: SODIUM CHLORIDE 0.9% 1000ML 1,000 ML IV ONE (15:49)
[2020-08-01] MEDS ORDERED: dilTIAZem HCl 5 MG/ML 5 ML VIAL IV STA (15:49)
--- NOTE | 2020-08-01 15:49 | Emergency Department Note ---
Impression & Plan Atrial fibrillation with RVR, Hairy cell leukemia, Pancytopenia ED Provider Note NAME: REBECCA BROWNLEE AGE: 70 SEX: M : 1950 ARRIVES VIA: Ambulance INFORMANT: Patient ED PROVIDER(S): Ihsan Pettit DO CHIEF COMPLAINT: Allergic reaction HPI: Patient is a 70-year-old male who presents [facility] the ER from [facility]. 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 This is his first injection of this medication. When he got this he became flushed. Heart rate was found to be in the 140s to 1 50s. He was in A. fib. He denies any headache or chest pain. No change in vision or shortness of breath. No nausea, vomiting or diarrhea. No dysuria, urgency or frequency. No other exacerbating or remitting factors. He initially felt cold all over but that has now resolved. He has never had any history of A. fib. He does not take any blood thinners. ROS: See above HPI for pertinent positives & negatives. A total of 10 systems reviewed and were otherwise negative. PAST MEDICAL HISTORY:See Below PAST SURGICAL HISTORY:See Below FAMILY HISTORY:See Below SOCIAL HISTORY:See Below HOME MEDICATIONS:See Below ALLERGIES:See Below VITALS:See Below PHYSICAL EXAMINATION: GENERAL: Sitting up in bed, alert, well appearing, well nourished, no distress, non-toxic EYE EXAM: normal conjunctiva. OROPHARYNX: no exudate, no erythema, lips, buccal mucosa, and tongue normal and mucous membranes are moist NECK: supple, no nuchal rigidity, no adenopathy, non-tender LUNGS: Clear to auscultation. Normal chest wall mechanics HEART: Tachycardic and irregular regular S1 normal and S2 normal ABDOMEN: abdomen soft, non-tender, normo-active bowel sounds, no masses, no rebound or guarding. UPPER EXTREMITIES: upper extremities are grossly normal. LOWER EXTREMITIES: No pitting edema. NEURO EXAM: Normal sensorium, cranial nerves II-XII grossly intact, normal speech, no gross weakness of arms, no gross weakness of legs. MEDICAL DECISION MAKING: Patient is a 70-year-old male who is [facility] receiving IV medications. Following this he felt flushed and cold throughout. He was found to be in A. fib with RVR and was referred into the ER. He has never had this before. IV was established blood work was obtained. Labs show a leukopenia at 1 and a hemoglobin of 9.5 with a thrombocytopenia at 35 slightly down from baseline of about 50-60.Patient with a moderate neutropenia at 970 fairly consistent with previous as well. INR at 1.2. BMP with an elevated glucose. Calcium was low at 7.9. T bili mildly elevated at 1.3 but no belly pain. Troponin was negative. Lipase unremarkable. Covid was negative. EKG shows Castillo. graeme with RVR. He was given a Cardizem drip and bolus. Heart rate trended down from the 150s to the low 100s. Patient was updated bedside discussed the hospitalist for further evaluation. Triage Nursing notes reviewed. Limited review of prior medical records performed Vital Signs: reviewed and remarkable for tachycardic Differential diagnosis: Infection, dehydration, metabolic abnormality, hypo/hyperglycemia, electrolyte disturbance, anemia, hypoxia, cardiac sources, intracerebral event, toxicologic, neurologic, as well as other pathologies. ER treatment provided: See below Diagnostics interpreted by me: ECG: Dorothea bedolla RVR rate of 136 Left axis No PVCs QTC 415 Cardiac Monitoring: An order was placed for continuous cardiac monitoring. The monitor shows a rate of 145 with sinus rhythm. Laboratory studies: As stated above and show below. Imaging studies: Portable AP upright 1 view the chest shows no focal infiltrate or pneumothorax. Consultation(s): Discussed with the hospitalist for further evaluation Procedures: none Critical Care: I have personally spent 39 minutes of critical care time in the direct management of this patient. This includes bedside care, interpretation of diagnostic studies, and testing, discussion with consultants, patient, and family members, and other required patient management activities. This 39 minutes is in excess of all separately billable procedures. Past Med/Surg History Medical History Family history of malignant hyperthermia Hairy cell leukemia [place] CHEMO 35 YEARS AGO (CURRENY DX WITH AGAIN) History of depression Hx of hematuria Surgical History Family history of malignant hyperthermia SECOND COUSIN DX WITH (NEVER HAD ANY ISSUES) History of cataract surgery RT History of colonoscopy History of cystoscopy History of tonsillectomy and adenoidectomy History of vascular access device port put in here at [facility] 3 weeks ago Tumor BENIGN TUMORS REMOVED FROM BACK Family History (Updated 08/01/20 @ 17:37 by Mónica Maxwell PA-C) Brother Family hx colonic polyps Coronary heart disease Father Cancer Prostate Arrhythmia Social History Smoking Status: Never smoker Second Hand Exposure: No; Hx Alcohol Use: No Hx Substance Use: No Preferred Language: [place] Islander Communication Ability: Effective 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 Beliefs That Will Affect Care: None Current Living Situation: Alone Feels Safe at Home: Yes Assistive Devices: None Allergies Allergies Allergy/AdvReac Type Severity Reaction Status Date / Time No Known Allergies Allergy Verified 06/19/20 08:07 Home Meds Home Medications Medication Instructions Recorded Confirmed Centrum Silver Ultra Men's 1 tab PO QDL 05/02/20 08/01/20 acyclovir 400 mg PO BID 06/19/20 08/01/20 dapsone 100 mg PO DAILY 06/19/20 08/01/20 prochlorperazine maleate 10 mg PO Q6H PRN 06/19/20 08/01/20 [Compazine] sildenafil 25 mg PO DAILY PRN 06/19/20 08/01/20 omeprazole 20 mg PO DAILY 08/01/20 08/01/20 prednisone 40 mg PO DAILY 08/01/20 08/01/20 Results & Data (ED) Vital Signs Vital Signs - 24 hr 08/01/20 15:32 08/01/20 15:35 08/01/20 15:37 Pulse Rate 134 H 119 H 133 H Pulse Rate from SpO2 Sensor 134 H 128 H Respiratory Rate 23 17 23 Respiratory Effort / Characteristics Non-Labored Respiratory Depth Normal Blood Pressure 148/93 H 143/104 H Blood Pressure Mean 111 117 Pulse Oximetry 95 96 96 Oxygen Delivery Method Room Air Sepsis Recent Fever Within 48 Hours No Sepsis New/Unexplained Change in Mental Status N/A Sepsis Action Taken by Nursing No Action Required 08/01/20 15:38 08/01/20 15:42 08/01/20 15:48 Pulse Rate 142 H 150 H Pulse Rate from SpO2 Sensor 129 H Respiratory Rate 22 20 Respiratory Effort / Characteristics Respiratory Depth Blood Pressure 148/93 H Blood Pressure Mean 111 Pulse Oximetry 95 95 98 Oxygen Delivery Method Room Air Room Air Sepsis Recent Fever Within 48 Hours Sepsis New/Unexplained Change in Mental Status Sepsis Action Taken by Nursing 08/01/20 16:01 08/01/20 16:15 08/01/20 16:16 Pulse Rate 122 H 116 H 127 H Pulse Rate from SpO2 Sensor 123 H Respiratory Rate 20 21 20 Respiratory Effort / Characteristics Respiratory Depth Blood Pressure 127/59 L 102/60 Blood Pressure Mean 81 74 Pulse Oximetry 95 95 96 Oxygen Delivery Method Room Air Room Air Sepsis Recent Fever Within 48 Hours Sepsis New/Unexplained Change in Mental Status Sepsis Action Taken by Nursing 08/01/20 16:26 08/01/20 16:30 08/01/20 16:45 Pulse Rate 120 H 98 H 140 H Pulse Rate from SpO2 Sensor 118 H 104 H 127 H Respiratory Rate 21 23 22 Respiratory Effort / Characteristics Respiratory Depth Blood Pressure 144/99 H 125/74 112/67 Blood Pressure Mean 114 91 82 Pulse Oximetry 95 94 93 Oxygen Delivery Method Sepsis Recent Fever Within 48 Hours Sepsis New/Unexplained Change in Mental Status Sepsis Action Taken by Nursing 08/01/20 17:00 Pulse Rate 112 H Pulse Rate from SpO2 Sensor Respiratory Rate 23 Respiratory Effort / Characteristics Respiratory Depth Blood Pressure 107/69 Blood Pressure Mean 81 Pulse Oximetry 95 Oxygen Delivery Method Room Air Sepsis Recent Fever Within 48 Hours Sepsis New/Unexplained Change in Mental Status Sepsis Action Taken by Nursing Laboratory Data Result diagrams: 08/01/20 15:44 08/01/20 15:44 Lab Results 08/01/20 08/01/20 08/01/20 Range/Units 15:44 15:44 15:44 WBC 1.01 L (4.8-10.8) K/uL RBC 2.91 L (4.7-6.1) M/uL Hgb 9.5 L (14.0-18.0) g/dL Hct 29.9 L (42-52) % MCV 102.7 H (80-100) fL MCH 32.6 (25-34) pg MCHC 31.8 L (32-36) g/dL RDW Std Deviation 69.4 H (36.4-46.3) fL RDW Coeff of Dale 18.5 H (11.5-14.5) % Plt Count 35 L (130-400) K/uL Immature Gran % (Auto) 1.0 % Neut % (Auto) 96.0 % Lymph % (Auto) 2.0 % Stokes % (Auto) 1.0 % Eos % (Auto) 0.0 % Baso % (Auto) 0.0 % Neut # (Auto) 0.97 L* (1.4-6.5) K/uL Lymph # (Auto) 0.02 L (1.2-3.4) K/uL Stokes # (Auto) 0.01 L (0.11-0.59) K/uL Eos # (Auto) 0.00 (0-0.5) K/uL Baso # (Auto) 0.00 (0-0.2) K/uL Immature Gran # (Auto) 0.01 (0.00-0.02) K/uL Absolute Nucleated RBC 0.03 H (0-0) K/uL Nucleated RBC % (auto) 2.9 % Platelet Estimate Decreased L (Normal) Anisocytosis Present Tear Drop Cells 1+ PT 12.2 H (9.0-12.0) Seconds INR 1.2 H (0.9-1.1) APTT 37.4 H (21.0-31.0) Seconds PTT Ratio 1.3 Sodium 140 (136-145) mmol/L Potassium 4.5 (3.5-5.1) mmol/L Chloride 107 (98-107) mmol/L Carbon Dioxide 29 (21-32) mmol/L Anion Gap 4.0 (3-11) BUN 21 H (7-18) mg/dl Creatinine 1.01 (0.6-1.4) mg/dl Est Cr Clr Drug Dosing 86.6 ml/min Est GFR ( Amer) 86.3 Est GFR (Non-Af Amer) 74.5 BUN/Creatinine Ratio 20.9 H (10-20) Glucose 192 H (70-99) mg/dl Calcium 7.9 L (8.5-10.1) mg/dl Total Bilirubin 1.3 H (0.2-1) mg/dl AST 19 (15-37) U/L ALT 38 (12-78) U/L Alkaline Phosphatase 46 (45-117) U/L Troponin I < 0.015 (0-0.045) ng/ml Total Protein 6.1 L (6.4-8.2) gm/dl Albumin 4.0 (3.4-5.0) gm/dl Globulin 2.1 L (2.5-4.0) gm/dl Albumin/Globulin Ratio 1.9 (0.9-2) Lipase 98 (73-393) U/L COVID-19 Eval Order SARS-CoV-2, RNA, NAAT (NEGATIVE) 08/01/20 08/01/20 Range/Units 15:50 15:50 WBC (4.8-10.8) K/uL RBC (4.7-6.1) M/uL Hgb (14.0-18.0) g/dL Hct (42-52) % MCV (80-100) fL MCH (25-34) pg MCHC (32-36) g/dL RDW Std Deviation (36.4-46.3) fL RDW Coeff of Dale (11.5-14.5) % Plt Count (130-400) K/uL Immature Gran % (Auto) % Neut % (Auto) % Lymph % (Auto) % Stokes % (Auto) % Eos % (Auto) % Baso % (Auto) % Neut # (Auto) (1.4-6.5) K/uL Lymph # (Auto) (1.2-3.4) K/uL Stokes # (Auto) (0.11-0.59) K/uL Eos # (Auto) (0-0.5) K/uL Baso # (Auto) (0-0.2) K/uL Immature Gran # (Auto) (0.00-0.02) K/uL Absolute Nucleated RBC (0-0) K/uL Nucleated RBC % (auto) % Platelet Estimate (Normal) Anisocytosis Tear Drop Cells PT (9.0-12.0) Seconds INR (0.9-1.1) APTT (21.0-31.0) Seconds PTT Ratio Sodium (136-145) mmol/L Potassium (3.5-5.1) mmol/L Chloride (98-107) mmol/L Carbon Dioxide (21-32) mmol/L Anion Gap (3-11) BUN (7-18) mg/dl Creatinine (0.6-1.4) mg/dl Est Cr Clr Drug Dosing ml/min Est GFR ( Amer) Est GFR (Non-Af Amer) BUN/Creatinine Ratio (10-20) Glucose (70-99) mg/dl Calcium (8.5-10.1) mg/dl Total Bilirubin (0.2-1) mg/dl AST (15-37) U/L ALT (12-78) U/L Alkaline Phosphatase (45-117) U/L Troponin I (0-0.045) ng/ml Total Protein (6.4-8.2) gm/dl Albumin (3.4-5.0) gm/dl Globulin (2.5-4.0) gm/dl Albumin/Globulin Ratio (0.9-2) Lipase (73-393) U/L COVID-19 Eval [facility] SARS-CoV-2, RNA, NAAT NEGATIVE (NEGATIVE) Administered Medications Diltiazem HCl 125 mg/ Dextrose 125 mls @ 5 mls/hr IV .Q24H [facility]; Protocol Stop: 08/31/20 15:59 Last Titration: 08/01/20 16:30 Dose: 10 mg/hr, 10 mls/hr Documented by: [id number] Cosigned by: [id number] Admin: 08/01/20 16:05 Dose: 5 mg/hr, 5 mls/hr Documented by: [id number] Cosigned by: [id number] Discontinued Medications Calcium Gluconate (Calcium Gluconate 1000 Mg/60 Ml Nss) Confirm Administered Dose 1,000 mg IV .STK-MED ONE Stop: 08/01/20 17:51 Last Admin: 08/01/20 17:51 Dose: Not Given Documented by: [id number] Diltiazem HCl (Diltiazem Hcl 5 Mg/Ml 5 Ml Vial) 10 mg IV NOW STA Stop: 08/01/20 15:50 Last Admin: 08/01/20 15:55 Dose: 10 mg Documented by: [id number] Cosigned by: [id number] Sodium Chloride (Nss 1000ml) 1,000 mls @ 999 mls/hr IV .Q1H1M ONE Stop: 08/01/20 16:49 Last Infusion: 08/01/20 16:46 Dose: 0 mls/hr Documented by: [id number] Admin: 08/01/20 15:55 Dose: 999 mls/hr Documented by: [id number] Metoprolol Tartrate (Metoprolol Tartrate 25 Mg Tab) 25 mg PO NOW STA Stop: 08/01/20 17:59 Last Admin: 08/01/20 18:12 Dose: 25 mg Documented by: [id number] Miscellaneous (Stat Iv Infusion Titration Per Protocol) 1 ea N/A NOW STA Stop: 08/01/20 15:50 Last Admin: 08/01/20 16:07 Dose: Not Given Documented by: [id number] Discharge Plan Visit Data Chief Complaint: Allergic Reaction Stated Complaint: ALLERGIC REACTION ED Provider: Ihsan Pettit Discharge Problem: Atrial fibrillation with RVR, Hairy cell leukemia, Pancytopenia Patient Disposition: Admitted As Inpatient Discharge Instructions Interventions: ED Discharge Assessment Last Done: 08/01/20 18:08
[2020-08-01 15:52] LABS: Mean Corpuscular Hgb Conc 31.8 g/dL (32-36); Nucleated RBC # (auto) 0.03 K/uL (0-0); Nucleated RBC % (auto) 2.9 %
[2020-08-01] MEDS ORDERED: dilTIAZem HCL 125 MG in DEXTROSE 5% 100 ML IV SCH (16:00)
[2020-08-01 16:07] LABS: Hematocrit (blood only) 29.9 % (42-52); Hemoglobin 9.5 g/dL (14.0-18.0); Mean Corpuscular Hemoglobin 32.6 pg (25-34); Mean Corpuscular Volume 102.7 fL (80-100); RDW Coefficient of Variation 18.5 % (11.5-14.5); RDW Standard Deviation 69.4 fL (36.4-46.3); Red Blood Count 2.91 M/uL (4.7-6.1); White Blood Count 1.01 K/uL (4.8-10.8)
[2020-08-01 16:14] LABS: Alanine Aminotransferase 38 U/L (12-78); Aspartate Aminotransferase 19 U/L (15-37); BUN Creatinine Ratio 20.9 (10-20); Blood Urea Nitrogen 21 mg/dl (7-18); Calcium 7.9 mg/dl (8.5-10.1); Carbon Dioxide 29 mmol/L (21-32); Chloride 107 mmol/L (98-107); Creatinine Clr Calc Pharmacy 86.6 ml/min; Est GFR (African American) 86.3; Est GFR (Non-African American) 74.5; Glucose 192 mg/dl (70-99); Lipase 98 U/L (73-393); Potassium 4.5 mmol/L (3.5-5.1); Sodium 140 mmol/L (136-145)
[2020-08-01 16:16] LABS: Platelet Count 35 K/uL (130-400)
[2020-08-01 16:18] LABS: Anisocytosis Present; INR 1.2 (0.9-1.1); Immature Granulocytes # (auto) 0.01 K/uL (0.00-0.02); Lymphocytes # (auto) 0.02 K/uL (1.2-3.4); Monocytes # (auto) 0.01 K/uL (0.11-0.59); Neutrophils # (auto) 0.97 K/uL (1.4-6.5); Partial Thromboplastin Ratio 1.3; Partial Thromboplastin Time 37.4 Seconds (21.0-31.0); Platelet Estimate Decreased (Normal); Prothrombin Time 12.2 Seconds (9.0-12.0); Tear Drop Cells 1+
[2020-08-01 16:19] LABS: Albumin Globulin Ratio 1.9 (0.9-2); Alkaline Phosphatase 46 U/L (45-117); Bilirubin,Total 1.3 mg/dl (0.2-1); Globulin 2.1 gm/dl (2.5-4.0); Total Protein 6.1 gm/dl (6.4-8.2); Troponin I < 0.015 ng/ml (0-0.045)
--- NOTE | 2020-08-01 16:20 | XRay Report ---
XR chest 1V portable HISTORY: Atypical Chest Pain COMPARISON: Chest 05/07/2020. FINDINGS: Right jugular Port-A-Cath terminates at the expected location the right brachiocephalic vei n. No pneumothorax. No pleural effusions. The lungs are clear. The heart remains top normal in size. No evidence for pulmonary edema. No acute rib fractures. IMPRESSION: No acute process. ACT 112: Negative or not required by law. Electronically signed by: Sajan Santos M.D. 08/01/2020 4:19 PM
--- NOTE | 2020-08-01 17:12 | History & Physical Report ---
Date of Service August 01, 2020 Assessment & Plan (1) Atrial fibrillation with RVR: This is a 70-year-old male who with significant past medical history hairy cell leukemia who presents to ED secondary to transfusion reaction to Rituxan with facial flushing and afib with RVR prior to arrival. Afib with RVR in setting of possible infusion reaction to rituxan. Received 10 mg of oral diltiazem and started on diltiazem drip. Currently on 10 mg with a blood pressure of 120/84. Admit to PCU Continue diltiazem drip Consult cardiology - spoke with Dr. Jarrell Initiate metoprolol tartrate 25 mg PO every 6 hours, first dose now IV heparin contraindicated in setting of thrombocytopenia, platelet 35 [id number] 2 (age and HTN) check mag and tsh keep K > 4, mag > 2.0 replace calcium (2) Hairy cell leukemia: (3) Pancytopenia: Patient initially diagnosed with hairy cell leukemia in [address] Gerardo. Currently is in third relapse. Treated with chemotherapy s/p 2 CDA complete 05/18/2020 Treatment refractory and presented today for first dose of Rituxan (to be weekly x4 weeks) Pancytopenia in setting of hairy cell leukemia WBC 1.01 ANC0.97 PLT 35 H&H 9.5 and 29.9 neutropenic precautions continue acyclovir, dapsone and prednisone current prednisone taper is 40mg to be tapered down weekly ( 30mg to start 08/07/20) (4) Hypocalcemia: Ca 7.9 in setting of normal albumin Give 1 g calcium gluconate x1 now May be contributing to patients leg cramping (5) Hyperglycemia: pt bsg 196, likely steroid induced has been on high dose prednisone since 06/26 currently on 40mg daily accuchecks, Novolog and lantus per protocol place on carb consistent diet a1c in a.m. glycemic pharmacy consult due to steroid induced hyperglycemia (6) DVT prophylaxis: none in setting of plt 35 reassess daily need for dvt prophylaxis Disposition: admit to PCU Follow up: PCP Dr. Jones upon discharge Pt was seen and examined in collaboration with Dr. Rojo, please see addendum History of Present Illness Chief Complaint: Transfusion reaction to Rituxan with facial flushing and afib RVR prior to arrival. Primary Care Provider: Adrien Jones MD This is a 70-year-old male with significant past medical history of hairy cell leukemia who presents to ED secondary to transfusion reaction to Rituxan with facial flushing and afib with RVR prior to arrival. Of significance patient has a past medical history of hairy cell leukemia initially diagnosed in 1989. This is his third relapse. He finished 2 cycles of chemo 8 weeks ago (s/p 2 CDA completed 05/18/20) with no improvement. He follows Dr. Gerardo and he presented to [facility] today for first dose of rituxan. After injection his heart rate increased significantly while hooked up on monitor, had facial flushing, chills and legs and feel tingled. He did not feel palpitation. HR were in 110s-120s. Infusion was stopped and he was given Solu-Cortef 100 mg IV push, Benadryl 25 mg IV push an additional 62.5 mg of Solu-Medrol. Furthermore, last one week complains of lightheadedness with bending over, increased leg cramps, tickle in throat, and dry cough. He denies fever, chills, KEE, chest pain, sore throat, congestion, rhinorrhea, n/v/d, constipation, abdominal pain, difficulty urinating, dysuria, melena, hematochezia. Pain in legs located in quads and calf. Denies hx of neuropathy. Has had 2 episodes of epistaxis in last few weeks. Denies recent easily bruising or hemoptysis but has had easy bruising in past. Pt also has been on high dose prednisone therapy, initially started 06/26/20 on 70mg daily. Currently he is on 40mg daily and tapering down weekly. In ED he was in afib with RVR. Received 10mg bolus of diltiazem and started on gtt with improvement of heart rates. Noted to be considerably pancytopenic but unchanged from baseline. Absolute neutrophil count 0.97, H&H 9.5 and 29.9, platelet 35. Does have hyperglycemia with a glucose of 192 and hypocalcemic at 7.9. Allergies Allergy/AdvReac Type Severity Reaction Status Date / Time No Known Allergies Allergy Verified 06/19/20 08:07 Home Medications Medication Instructions Recorded Confirmed Type Centrum Silver Ultra Men's 1 tab PO QDL 05/02/20 08/01/20 History acyclovir 400 mg PO BID 06/19/20 08/01/20 History dapsone 100 mg PO DAILY 06/19/20 08/01/20 History prochlorperazine maleate 10 mg PO Q6H PRN 06/19/20 08/01/20 History [Compazine] sildenafil 25 mg PO DAILY PRN 06/19/20 08/01/20 History omeprazole 20 mg PO DAILY 08/01/20 08/01/20 History prednisone 40 mg PO DAILY 08/01/20 08/01/20 History Past Med/Surg History Medical History Family history of malignant hyperthermia Hairy cell leukemia [place] CHEMO 35 YEARS AGO (SIDNEY DX WITH AGAIN) History of depression Hx of hematuria Surgical History Family history of malignant hyperthermia SECOND COUSIN DX WITH (NEVER HAD ANY ISSUES) History of cataract surgery [facility] History of colonoscopy History of cystoscopy History of tonsillectomy and adenoidectomy History of vascular access device port put in here at [facility] 3 weeks ago Tumor BENIGN TUMORS REMOVED FROM BACK Family History (Updated 08/01/20 @ 17:37 by Mónica Maxwell PA-C) Brother Family hx colonic polyps Coronary heart disease Father Cancer Prostate Arrhythmia Social History Smoking Status: Never smoker Second Hand Exposure: No; Hx Alcohol Use: No Hx Substance Use: No Preferred Language: [place] Communication Ability: Effective 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: No Beliefs That Will Affect Care: None Current Living Situation: Alone Feels Safe at Home: Yes Assistive Devices: None Review of Systems Review of Systems: All systems reviewed & are unremarkable except as noted in HPI & below Physical Exam Physical Exam: Constitutional: WD/WN, vitals as above, NAD, sitting up in bed, pleasant, conversing easily Head: Normocephalic, Atraumatic Eyes: PERRL, conjunctivae normal, anicteric sclerae ENMT: external ear and nose normal, oropharynx normal Neck: trachea midline, no thyromegaly normal visual inspection Respiratory: normal respiratory effort, lungs clear to auscultation, no wheeze, rales, rhonchi. Normal insp/exp effort, no accessory muscle use Cardiovascular: IRR/IRR, no murmur, no edema Vessels: no JVD or carotid bruit Chest:R Port in place, no erythema, normal inspection of chest Abdomen: normal bowel sounds, soft, nontender, no hepatosplenomegaly Musculoskeletal: no cyanosis or clubbing, extremities motor strength 5/5 Skin: no rashes, warm and dry normal turgor Neurologic: PERRL, EOMI, accommodation nl, no face palsy, no dysarthria CN's II-XI intact bilaterally and moves all extremities Psychiatric: A+Ox3, euthymic affect : deferred Results & Data Results & Data ([facility]) Vital Signs (Past 12 Hours) Vital Signs Pulse Resp BP Pulse Ox 08/01/20 17:00 112 H 23 107/69 95 08/01/20 16:45 140 H 22 112/67 93 08/01/20 16:30 98 H 23 125/74 94 08/01/20 16:26 120 H 21 144/99 H 95 08/01/20 16:16 127 H 20 96 08/01/20 16:15 116 H 21 102/60 95 08/01/20 16:01 122 H 20 127/59 L 95 08/01/20 15:48 98 08/01/20 15:42 150 H 20 95 08/01/20 15:38 142 H 22 148/93 H 95 08/01/20 15:37 133 H 23 96 08/01/20 15:35 119 H 17 143/104 H 96 08/01/20 15:32 134 H 23 148/93 H 95 Diagnostic Findings CXR: FINDINGS: Right jugular Port-A-Cath terminates at the expected location the right brachiocephalic vein. No pneumothorax. No pleural effusions. The lungs are clear. The heart remains top normal in size. No evidence for pulmonary edema. No acute rib fractures. IMPRESSION: No acute process. Medications Administered Diltiazem HCl 125 mg/ Dextrose 125 mls @ 5 mls/hr IV .Q24H [facility]; Protocol Stop: 08/31/20 15:59 Last Titration: 08/01/20 16:30 Dose: 10 mg/hr, 10 mls/hr Documented by: [id number] Cosigned by: [id number] Admin: 08/01/20 16:05 Dose: 5 mg/hr, 5 mls/hr Documented by: [id number] Cosigned by: [id number] Discontinued Medications Diltiazem HCl (Diltiazem Hcl 5 Mg/Ml 5 Ml Vial) 10 mg IV NOW STA Stop: 08/01/20 15:50 Last Admin: 08/01/20 15:55 Dose: 10 mg Documented by: [id number] Cosigned by: [id number] Sodium Chloride (Nss 1000ml) 1,000 mls @ 999 mls/hr IV .Q1H1M ONE Stop: 08/01/20 16:49 Last Infusion: 08/01/20 16:46 Dose: 0 mls/hr Documented by: [id number] Admin: 08/01/20 15:55 Dose: 999 mls/hr Documented by: [id number] Miscellaneous (Stat Iv Infusion Titration Per Protocol) 1 ea N/A NOW STA Stop: 08/01/20 15:50 Last Admin: 08/01/20 16:07 Dose: Not Given Documented by: [id number] ECG Rate (beats per minute): 136 Rhythm: atrial fibrillation COVID-19 Results Results COVID-19 Adm Lab Results: RBC 2.91 M/uL (4.7-6.1) L 08/01/20 WBC 1.01 K/uL (4.8-10.8) L 08/01/20 Hgb 9.5 g/dL (14.0-18.0) L 08/01/20 Hct 29.9 % (42-52) L 08/01/20 Plt Count 35 K/uL (130-400) L 08/01/20 Neutrophils (%) (Auto) 96.0 % 08/01/20 Lymphocytes (%) (Auto) 2.0 % 08/01/20 Monocytes # (Auto) 0.01 K/uL (0.11-0.59) L 08/01/20 Eosinophils # (Auto) 0.00 K/uL (0-0.5) 08/01/20 Immature Granulocyte % (Auto) 1.0 % 08/01/20 Neutrophils # (Auto) 0.97 K/uL (1.4-6.5) L* 08/01/20 Lymphocytes # (Auto) 0.02 K/uL (1.2-3.4) L 08/01/20 Monocytes # (Auto) 0.01 K/uL (0.11-0.59) L 08/01/20 Eosinophils # (Auto) 0.00 K/uL (0-0.5) 08/01/20 Basophils # (Auto) 0.00 K/uL (0-0.2) 08/01/20 Immature Granulocyte # (Auto) 0.01 K/uL (0.00-0.02) 08/01/20 Anisocytosis Present 08/01/20 Tear Drop Cells 1+ 08/01/20 Na 140 mmol/L (136-145) 08/01/20 K 4.5 mmol/L (3.5-5.1) 08/01/20 Cl 107 mmol/L (98-107) 08/01/20 CO2 29 mmol/L (21-32) 08/01/20 Anion Gap 4.0 (3-11) 08/01/20 BUN 21 mg/dl (7-18) H 08/01/20 Creatinine 1.01 mg/dl (0.6-1.4) 08/01/20 BUN/Creatinine Ratio 20.9 (10-20) H 08/01/20 Glucose Level 192 mg/dl (70-99) H 08/01/20 Ca 7.9 mg/dl (8.5-10.1) L 08/01/20 Total Bilirubin 1.3 mg/dl (0.2-1) H 08/01/20 AST/SGOT 19 U/L (15-37) 08/01/20 ALT/SGPT 38 U/L (12-78) 08/01/20 Alkaline Phosphatase 46 U/L (45-117) 08/01/20 Total Protein 6.1 gm/dl (6.4-8.2) L 08/01/20 Albumin 4.0 gm/dl (3.4-5.0) 08/01/20 Globulin 2.1 gm/dl (2.5-4.0) L 08/01/20 Albumin/Globulin Ratio 1.9 (0.9-2) 08/01/20 Troponin I < 0.015 ng/ml (0-0.045) 08/01/20 PTT 37.4 Seconds (21.0-31.0) H 08/01/20 INR 1.2 (0.9-1.1) H 08/01/20 SARS-CoV-2, RNA, NAAT NEGATIVE (NEGATIVE) 08/01/20 Chest X-Ray 08/01/20 Code Status & VTE Plan Code Status Full Code VTE Prophylaxis Plan VTE Prophylaxis will be ordered: No Reason for no VTE drug order: Contraindicated Reason for no VTE mechanical prophylaxis: Contraindicated Supervising Physician Co-Signing Physician Notes 70-year-old man with pancytopenia, hairy cell leukemia undergoing treatment who presents from [facility] where he developed flushing and A. fib with RVR while getting first injection of Rituxan. History as detailed above, notable for chronic history of leg cramping, flushing during rituxan injection associated with feeling cold with tingling in the legs and hands. No fevers. Reports occasional epistaxis and easy bruising Physical exam notable for right chest wall port, irregularly irregular heart rhythm with tachycardia Lab work notable for pancytopenia with WBC of 1000, hemoglobin of 9.5, platelet of 35, blood glucose of 192, calcium was 7.9 with albumin of 4.0. -A. fib with rapid ventricular rate -Drug reaction -Pancytopenia -Hypocalcemia Currently on diltiazem drip. Start metoprolol titrate 25 mg every 6 hours and monitor Telemetry monitoring Cardiology consult [facility]VASC is 2. No anticoagulation/antiplatelet for now considering thrombocytopenia Replete calcium. Monitor electrolytes and replete appropriately Monitor pancytopenia. Monitor for signs of infection. No antibiotics for now Continue prednisone taper as patient was on. currently on 40mg to taper by 10mg weekly Other plans as above (1) Hairy cell leukemia Leukemia Active/Remission status: without remission Qualified Code(s): C91.40 - Hairy cell leukemia not having achieved remission
[2020-08-01] MEDS ORDERED: CALCIUM GLUCONATE 10% 10 ML VIAL IV STA (17:18)
[2020-08-01] MEDS ORDERED: CALCIUM GLUCONATE 1000 MG/60 ML NSS IV ONE (17:50)
[2020-08-01] MEDS ORDERED: METOPROLOL TARTRATE 25 MG TAB PO STA (17:58)
[2020-08-01] MEDS ORDERED: CALCIUM GLUCONATE 10% 1,000 MG in SODIUM CHLORIDE 0.9% 50 ML IV ONE (18:00)
[2020-08-01] MEDS ORDERED: GLUCOSE 40% GEL 15 GM TUBE PO PRN (18:14)
[2020-08-01] MEDS ORDERED: GLUCAGON FOR INJ 1 MG VIAL SQ PRN (18:14)
[2020-08-01] MEDS ORDERED: CARBOHYDRATES FOR HYPOGLYCEMIA PO PRN (18:14)
[2020-08-01] MEDS ORDERED: DEXTROSE 50% 50 ML SYRINGE IV PRN (18:14)
[2020-08-01] MEDS ORDERED: ACETAMINOPHEN 325 MG TAB PO PRN (18:14)
[2020-08-01] MEDS ORDERED: GLUCOSE 10 TABS/TUBE PO PRN (18:14)
[2020-08-01] MEDS ORDERED: PHARMACY GLYCEMIC MGMT CONSULT STA (18:14)
[2020-08-01] MEDS ORDERED: ONDANSETRON INJ 2 MG/ML 2 ML VIAL IV PRN (18:14)
[2020-08-01] MEDS ORDERED: POLYETHYLENE (MIRALAX) 17 GM PACK PO PRN (18:49)
[2020-08-01] MEDS ORDERED: ALUMINUM/MAGNESIUM SUSP 30 ML UDC PO PRN (18:49)
[2020-08-01] MEDS ORDERED: MAGNESIUM HYDROXIDE SUSP 30 ML UDC PO PRN (18:49)
[2020-08-01 19:25] LABS: Magnesium 2.2 mg/dl (1.8-2.4); Thyroid Stimulating Hormone 0.266 uIu/ml (0.300-4.500)
[2020-08-01 19:37] LABS: T4 Free Thyroxine 1.06 ng/dl (0.8-1.6)
[2020-08-01] MEDS ORDERED: INSULIN GLARGINE SOLOSTAR 100 UNITS/ML 3 ML PEN SC SCH (21:00)
[2020-08-01] MEDS ORDERED: INSULIN ASPART 100 UNITS/ML 3 ML PEN SC SCH (21:00)
[2020-08-01] MEDS ORDERED: PHARMACY GLYCEMIC MGMT CONSULT PRN (21:13)
[2020-08-01] MEDS ORDERED: LANTUS PER UNIT CHARGE SQ ONE (21:30)
[2020-08-01] MEDS: ACYCLOVIR 400 MG TAB PO SCH (21:44)
[2020-08-02] MEDS: METOPROLOL TARTRATE 25 MG TAB PO SCH ×2 (00:53→06:04)
--- NOTE | 2020-08-02 06:04 | Electrocardiogram Report ---
Test Reason : Blood Pressure : / mmHG Vent. Rate : 136 BPM Atrial Rate : 163 BPM P-R Int : 000 ms QRS Dur : 092 ms QT Int : 276 ms P-R-T Axes : 000 -10 014 degrees QTc Int : 415 ms Poor data quality, interpretation may be adversely affected Atrial fibrillation with rapid ventricular response Abnormal ECG No previous ECGs available Confirmed by [place] [id number]) on 08/02/2020 6:04:03 AM Referred By: REFERRED SELF Confirmed By:[place]
[2020-08-02] MEDS: INSULIN ASPART 100 UNITS/ML 3 ML PEN SC SCH ×2 (06:27→09:38)
[2020-08-02 06:53] LABS: Nucleated RBC # (auto) 0.05 K/uL (0-0); Nucleated RBC % (auto) 4.1 %
--- NOTE | 2020-08-02 07:12 | Hospitalist Progress Note ---
Date of Service August 02, 2020 Assessment & Plan (1) Atrial fibrillation with RVR: This is a 70-year-old male who with significant past medical history hairy cell leukemia who presents to ED secondary to transfusion reaction to Rituxan with facial flushing and afib with RVR prior to arrival. Afib with RVR in setting of possible infusion reaction to rituxan. Received 10 mg of oral diltiazem and started on diltiazem drip. Admitted to PCU Continued diltiazem drip, stopped overnight Consulted cardiology - spoke with Dr. Jarrell Initiate metoprolol tartrate 25 mg PO every 6 hours, first dose on admission Now recommend to discharge on metoprolol 25 mg BID, ASA 81 mg daily IV heparin contraindicated in setting of thrombocytopenia, platelet 35 [id number] (age and HTN) check mag and tsh, TSH 0.27 keep K > 4, mag > 2.0 replaced calcium (2) Hairy cell leukemia: (3) Pancytopenia: Patient initially diagnosed with hairy cell leukemia in [address] Gerardo. Currently is in third relapse. Treated with chemotherapy s/p 2 CDA complete 05/18/2020 Treatment refractory and presented today for first dose of Rituxan (to be weekly x4 weeks) Pancytopenia d/t hairy cell leukemia WBC 1.01 ANC0.97 PLT 35 H&H 9.5 and 29.9 neutropenic precautions continue acyclovir, dapsone and prednisone current prednisone taper is 40mg to be tapered down weekly ( 30mg to start 08/07/20) (4) Hypocalcemia: Ca 7.9 in setting of normal albumin Gave 1 g calcium gluconate x1 on admission May be contributing to patients leg cramping Follow up as outpt (5) Hyperglycemia: pt bsg 196, likely steroid induced has been on high dose prednisone since 06/26 currently on 40mg daily accuchecks, Novolog and lantus per protocol place on carb consistent diet Current Hgb a1c 4.8% glycemic pharmacy consult due to steroid induced hyperglycemia (6) DVT prophylaxis: none in setting of plt 35 reassess daily need for dvt prophylaxis Disposition: admitted to PCU for close observation and tele, pt to be discharged home today Follow up: PCP Dr. Jones upon discharge Admission and Anticipated Discharge Date Admission Date: August 01, 2020 Subjective Pt seen in follow up of Afib RVR. Seen by cardiology, now IV cardizem stopped, pt on PO metoprolol. Pt is currently feeling well, saying he "feels blessed". Denies any palpitations, chest pain, shortness of breath, dizziness, lightheadedness. Review of Systems Review of Systems: All systems reviewed & are unremarkable except as noted in HPI & below Constitutional: no fever and no chills Respiratory: no cough and no dyspnea Cardiovascular: no chest pain and no palpitations Gastrointestinal: no abdominal pain, no nausea and no vomiting Physical Exam Physical Exam: Constitutional: WD/WN, NAD, sitting up in bed Head: Normocephalic, Atraumatic Eyes: PERRL, conjunctivae normal, anicteric sclerae ENMT: external ear and nose normal, oropharynx normal Neck: trachea midline, no thyromegaly normal visual inspection Respiratory: normal respiratory effort, lungs clear to auscultation, no wheeze, rales, rhonchi. Normal insp/exp effort, no accessory muscle use Cardiovascular: IRR/IRR, no murmur, no edema Vessels: no JVD or carotid bruit Chest:R Port in place, no erythema, normal inspection of chest Abdomen: normal bowel sounds, soft, nontender, +splenomegaly Musculoskeletal: no cyanosis or clubbing, extremities motor strength 5/5 Skin: no rashes, warm and dry normal turgor Neurologic: PERRL, EOMI, no face palsy, no dysarthria CN's II-XI intact bilaterally and moves all extremities Psychiatric: A+Ox3, euthymic affect Results & Data Results & Data ([facility]) Vital Signs (Past 12 Hours) Vital Signs Temp Pulse Resp BP Pulse Ox 08/02/20 04:02 36.4 C L 82 16 113/68 97 08/02/20 00:38 36.8 C 76 16 109/59 L 100 Laboratory Results 08/02/20 08/02/20 08/02/20 Range/Units 06:03 06:03 06:03 WBC Pending (4.8-10.8) K/uL RBC Pending (4.7-6.1) M/uL Hgb Pending (14.0-18.0) g/dL Hct Pending (42-52) % MCV Pending (80-100) fL MCH Pending (25-34) pg MCHC Pending (32-36) g/dL RDW Std Deviation (36.4-46.3) fL RDW Coeff of Dale (11.5-14.5) % Plt Count Pending (130-400) K/uL Immature Gran % (Auto) % Neut % (Auto) % Lymph % (Auto) % Delta % (Auto) % Eos % (Auto) % Baso % (Auto) % Neut # (Auto) (1.4-6.5) K/uL Lymph # (Auto) (1.2-3.4) K/uL Delta # (Auto) (0.11-0.59) K/uL Eos # (Auto) (0-0.5) K/uL Baso # (Auto) (0-0.2) K/uL Immature Gran # (Auto) (0.00-0.02) K/uL Absolute Nucleated RBC 0.05 H (0-0) K/uL Nucleated RBC % (auto) 4.1 % Platelet Estimate (Normal) Anisocytosis Tear Drop Cells PT (9.0-12.0) Seconds INR (0.9-1.1) APTT (21.0-31.0) Seconds PTT Ratio Sodium Pending (136-145) mmol/L Potassium Pending (3.5-5.1) mmol/L Chloride Pending (98-107) mmol/L Carbon Dioxide Pending (21-32) mmol/L Anion Gap Pending (3-11) BUN Pending (7-18) mg/dl Creatinine Pending (0.6-1.4) mg/dl Est Cr Clr Drug Dosing Pending ml/min Est GFR ( Amer) Pending Est GFR (Non-Af Amer) Pending BUN/Creatinine Ratio Pending (10-20) Glucose Pending (70-99) mg/dl POC Glucose (70-99) mg/dl Estimat Average Glucose Pending Hemoglobin A1c Pending Calcium Pending (8.5-10.1) mg/dl Magnesium Pending (1.8-2.4) mg/dl Total Bilirubin Pending (0.2-1) mg/dl AST Pending (15-37) U/L ALT Pending (12-78) U/L Alkaline Phosphatase Pending (45-117) U/L Troponin I (0-0.045) ng/ml Total Protein Pending (6.4-8.2) gm/dl Albumin Pending (3.4-5.0) gm/dl Globulin Pending (2.5-4.0) gm/dl Albumin/Globulin Ratio Pending (0.9-2) Lipase (73-393) U/L TSH (0.300-4.500) uIu/ml Free T4 (0.8-1.6) ng/dl COVID-19 Eval Order SARS-CoV-2, RNA, NAAT (NEGATIVE) 08/02/20 08/01/20 08/01/20 Range/Units 06:00 20:21 18:53 WBC (4.8-10.8) K/uL RBC (4.7-6.1) M/uL Hgb (14.0-18.0) g/dL Hct (42-52) % MCV (80-100) fL MCH (25-34) pg MCHC (32-36) g/dL RDW Std Deviation (36.4-46.3) fL RDW Coeff of Dale (11.5-14.5) % Plt Count (130-400) K/uL Immature Gran % (Auto) % Neut % (Auto) % Lymph % (Auto) % Delta % (Auto) % Eos % (Auto) % Baso % (Auto) % Neut # (Auto) (1.4-6.5) K/uL Lymph # (Auto) (1.2-3.4) K/uL Delta # (Auto) (0.11-0.59) K/uL Eos # (Auto) (0-0.5) K/uL Baso # (Auto) (0-0.2) K/uL Immature Gran # (Auto) (0.00-0.02) K/uL Absolute Nucleated RBC (0-0) K/uL Nucleated RBC % (auto) % Platelet Estimate (Normal) Anisocytosis Tear Drop Cells PT (9.0-12.0) Seconds INR (0.9-1.1) APTT (21.0-31.0) Seconds PTT Ratio Sodium (136-145) mmol/L Potassium (3.5-5.1) mmol/L Chloride (98-107) mmol/L Carbon Dioxide (21-32) mmol/L Anion Gap (3-11) BUN (7-18) mg/dl Creatinine (0.6-1.4) mg/dl Est Cr Clr Drug Dosing ml/min Est GFR ( Amer) Est GFR (Non-Af Amer) BUN/Creatinine Ratio (10-20) Glucose (70-99) mg/dl POC Glucose 186 H 218 H 224 H (70-99) mg/dl Estimat Average Glucose Hemoglobin A1c Calcium (8.5-10.1) mg/dl Magnesium (1.8-2.4) mg/dl Total Bilirubin (0.2-1) mg/dl AST (15-37) U/L ALT (12-78) U/L Alkaline Phosphatase (45-117) U/L Troponin I (0-0.045) ng/ml Total Protein (6.4-8.2) gm/dl Albumin (3.4-5.0) gm/dl Globulin (2.5-4.0) gm/dl Albumin/Globulin Ratio (0.9-2) Lipase (73-393) U/L TSH (0.300-4.500) uIu/ml Free T4 (0.8-1.6) ng/dl COVID-19 Eval Order SARS-CoV-2, RNA, NAAT (NEGATIVE) 08/01/20 08/01/20 08/01/20 Range/Units 16:49 15:50 15:50 WBC (4.8-10.8) K/uL RBC (4.7-6.1) M/uL Hgb (14.0-18.0) g/dL Hct (42-52) % MCV (80-100) fL MCH (25-34) pg MCHC (32-36) g/dL RDW Std Deviation (36.4-46.3) fL RDW Coeff of Dale (11.5-14.5) % Plt Count (130-400) K/uL Immature Gran % (Auto) % Neut % (Auto) % Lymph % (Auto) % Delta % (Auto) % Eos % (Auto) % Baso % (Auto) % Neut # (Auto) (1.4-6.5) K/uL Lymph # (Auto) (1.2-3.4) K/uL Delta # (Auto) (0.11-0.59) K/uL Eos # (Auto) (0-0.5) K/uL Baso # (Auto) (0-0.2) K/uL Immature Gran # (Auto) (0.00-0.02) K/uL Absolute Nucleated RBC (0-0) K/uL Nucleated RBC % (auto) % Platelet Estimate (Normal) Anisocytosis Tear Drop Cells PT (9.0-12.0) Seconds INR (0.9-1.1) APTT (21.0-31.0) Seconds PTT Ratio Sodium (136-145) mmol/L Potassium (3.5-5.1) mmol/L Chloride (98-107) mmol/L Carbon Dioxide (21-32) mmol/L Anion Gap (3-11) BUN (7-18) mg/dl Creatinine (0.6-1.4) mg/dl Est Cr Clr Drug Dosing ml/min Est GFR ( Amer) Est GFR (Non-Af Amer) BUN/Creatinine Ratio (10-20) Glucose (70-99) mg/dl POC Glucose (70-99) mg/dl Estimat Average Glucose Hemoglobin A1c Calcium (8.5-10.1) mg/dl Magnesium 2.2 (1.8-2.4) mg/dl Total Bilirubin (0.2-1) mg/dl AST (15-37) U/L ALT (12-78) U/L Alkaline Phosphatase (45-117) U/L Troponin I (0-0.045) ng/ml Total Protein (6.4-8.2) gm/dl Albumin (3.4-5.0) gm/dl Globulin (2.5-4.0) gm/dl Albumin/Globulin Ratio (0.9-2) Lipase (73-393) U/L TSH 0.266 L (0.300-4.500) uIu/ml Free T4 1.06 (0.8-1.6) ng/dl COVID-19 Eval Order Covid19 IDNow [facility] SARS-CoV-2, RNA, NAAT NEGATIVE (NEGATIVE) 08/01/20 08/01/20 08/01/20 Range/Units 15:44 15:44 15:44 WBC 1.01 L (4.8-10.8) K/uL RBC 2.91 L (4.7-6.1) M/uL Hgb 9.5 L (14.0-18.0) g/dL Hct 29.9 L (42-52) % MCV 102.7 H (80-100) fL MCH 32.6 (25-34) pg MCHC 31.8 L (32-36) g/dL RDW Std Deviation 69.4 H (36.4-46.3) fL RDW Coeff of Dale 18.5 H (11.5-14.5) % Plt Count 35 L (130-400) K/uL Immature Gran % (Auto) 1.0 % Neut % (Auto) 96.0 % Lymph % (Auto) 2.0 % Delta % (Auto) 1.0 % Eos % (Auto) 0.0 % Baso % (Auto) 0.0 % Neut # (Auto) 0.97 L* (1.4-6.5) K/uL Lymph # (Auto) 0.02 L (1.2-3.4) K/uL Delta # (Auto) 0.01 L (0.11-0.59) K/uL Eos # (Auto) 0.00 (0-0.5) K/uL Baso # (Auto) 0.00 (0-0.2) K/uL Immature Gran # (Auto) 0.01 (0.00-0.02) K/uL Absolute Nucleated RBC 0.03 H (0-0) K/uL Nucleated RBC % (auto) 2.9 % Platelet Estimate Decreased L (Normal) Anisocytosis Present Tear Drop Cells 1+ PT 12.2 H (9.0-12.0) Seconds INR 1.2 H (0.9-1.1) APTT 37.4 H (21.0-31.0) Seconds PTT Ratio 1.3 Sodium 140 (136-145) mmol/L Potassium 4.5 (3.5-5.1) mmol/L Chloride 107 (98-107) mmol/L Carbon Dioxide 29 (21-32) mmol/L Anion Gap 4.0 (3-11) BUN 21 H (7-18) mg/dl Creatinine 1.01 (0.6-1.4) mg/dl Est Cr Clr Drug Dosing 86.6 ml/min Est GFR ( Amer) 86.3 Est GFR (Non-Af Amer) 74.5 BUN/Creatinine Ratio 20.9 H (10-20) Glucose 192 H (70-99) mg/dl POC Glucose (70-99) mg/dl Estimat Average Glucose Hemoglobin A1c Calcium 7.9 L (8.5-10.1) mg/dl Magnesium (1.8-2.4) mg/dl Total Bilirubin 1.3 H (0.2-1) mg/dl AST 19 (15-37) U/L ALT 38 (12-78) U/L Alkaline Phosphatase 46 (45-117) U/L Troponin I < 0.015 (0-0.045) ng/ml Total Protein 6.1 L (6.4-8.2) gm/dl Albumin 4.0 (3.4-5.0) gm/dl Globulin 2.1 L (2.5-4.0) gm/dl Albumin/Globulin Ratio 1.9 (0.9-2) Lipase 98 (73-393) U/L TSH (0.300-4.500) uIu/ml Free T4 (0.8-1.6) ng/dl COVID-19 Eval Order SARS-CoV-2, RNA, NAAT (NEGATIVE) Medications Administered Current Inpatient Medications Acetaminophen (Acetaminophen 325 Mg Tab) 650 mg PO Q4H PRN PRN Reason: Pain or Fever Stop: 08/31/20 18:13 Acyclovir (Acyclovir 400 Mg Tab) 400 mg PO BID NGA Stop: 08/31/20 20:59 Last Admin: 08/01/20 21:44 Dose: 400 mg Documented by: Al Hydrox/Mg Hydrox/Simethicone (Aluminum/Magnesium Susp 30 Ml Udc) 15 ml PO Q4H PRN PRN Reason: Dyspepsia Stop: 08/31/20 18:48 Dapsone (Dapsone 25 Mg Tab) 100 mg PO DAILY NGA Stop: 09/01/20 08:59 Dextrose (Dextrose 50% 50 Ml Syringe) 25 - 50 ml IV UD PRN; Protocol PRN Reason: Hypoglycemia Protocol Stop: 08/31/20 18:13 Glucagon (Glucagon For Inj 1 Mg Vial) 1 mg SQ UD PRN; Protocol PRN Reason: Hypoglycemia Protocol Stop: 08/31/20 18:13 Glucose (Glucose 10 Tabs/Tube) 4 - 8 tabs PO UD PRN; Protocol PRN Reason: Hypoglycemia Protocol Stop: 08/31/20 18:13 Glucose (Glucose 40% Gel 15 Gm Tube) 15 - 30 gm PO UD PRN; Protocol PRN Reason: Hypoglycemia Protocol Stop: 08/31/20 18:13 Diltiazem HCl 125 mg/ Dextrose 125 mls @ 0 mls/hr IV .Q0M NGA; Protocol Stop: 08/31/20 15:59 Last Titration: 08/02/20 03:30 Dose: 0 mg/hr, 0 mls/hr Documented by: Insulin Aspart (Insulin Aspart 100 Units/Ml 3 Ml Pen) 0 units SC Q6 NGA Stop: 09/01/20 05:59 Last Admin: 08/02/20 06:27 Dose: 3 units Documented by: Magnesium Hydroxide (Magnesium Hydroxide Susp 30 Ml Udc) 30 ml PO Q12H PRN PRN Reason: Constipation Stop: 08/31/20 18:48 Metoprolol Tartrate (Metoprolol Tartrate 25 Mg Tab) 25 mg PO Q6H NGA Stop: 09/01/20 00:00 Last Admin: 08/02/20 06:04 Dose: 25 mg Documented by: Miscellaneous (Carbohydrates For Hypoglycemia ) 15 - 30 gm PO UD PRN PRN Reason: Hypoglycemia Protocol Stop: 08/31/20 18:13 Miscellaneous Information (Pharmacy Glycemic Mgmt Consult) 1 ea N/A UD PRN; Protocol PRN Reason: Consult Stop: 08/31/20 21:12 Multivitamins/Minerals (Cerovite Adv Formula Tab) 1 tab PO QDL [facility] Stop: 09/01/20 11:29 Ondansetron HCl (Ondansetron Inj 2 Mg/Ml 2 Ml Vial) 4 mg IV Q6H PRN PRN Reason: Nausea Stop: 08/31/20 18:13 Pantoprazole Sodium (Pantoprazole 40 Mg Tab) 40 mg PO DAILY [facility] Stop: 09/01/20 08:59 Polyethylene Glycol (Polyethylene (Miralax) 17 Gm Pack) 17 gm PO DAILY PRN PRN Reason: Constipation Stop: 08/31/20 18:48 Prednisone (Prednisone 10 Mg Tablet) 40 mg PO DAILY [facility] Stop: 09/01/20 08:59
[2020-08-02 07:13] LABS: Albumin Level 3.6 gm/dl (3.4-5.0); BUN Creatinine Ratio 23.7 (10-20); Calcium 8.1 mg/dl (8.5-10.1); Creatinine Clr Calc Pharmacy 80.3 ml/min; Est GFR (African American) 83.3; Est GFR (Non-African American) 71.9; Magnesium 2.6 mg/dl (1.8-2.4); Potassium 4.1 mmol/L (3.5-5.1)
[2020-08-02 07:16] LABS: Albumin Globulin Ratio 1.6 (0.9-2); Bilirubin,Total 1.2 mg/dl (0.2-1); Globulin 2.2 gm/dl (2.5-4.0); Total Protein 5.9 gm/dl (6.4-8.2)
[2020-08-02 07:27] LABS: Hematocrit (blood only) 30.5 % (42-52); Hemoglobin 9.6 g/dL (14.0-18.0); Mean Corpuscular Hemoglobin 32.4 pg (25-34); Mean Corpuscular Hgb Conc 31.5 g/dL (32-36); Platelet Count 43 K/uL (130-400); RDW Coefficient of Variation 18.9 % (11.5-14.5); RDW Standard Deviation 71.2 fL (36.4-46.3); Red Blood Count 2.96 M/uL (4.7-6.1)
[2020-08-02 07:28] LABS: Immature Granulocytes # (auto) 0.01 K/uL (0.00-0.02); Immature Granulocytes % (auto) 0.8 %; Lymphocytes # (auto) 0.03 K/uL (1.2-3.4); Lymphocytes % (auto) 2.5 %; Macrocytosis Present; Monocytes # (auto) 0.01 K/uL (0.11-0.59); Monocytes % (auto) 0.8 %; Neutrophils # (auto) 1.15 K/uL (1.4-6.5); Neutrophils % (auto) 95.9 %; Ovalocytes 1+; Platelet Estimate Decreased (Normal); Tear Drop Cells 1+
[2020-08-02 07:52] LABS: Estimated Average Glucose 91 mg/dl; Hemoglobin A1C 4.8 % (4.5-5.6)
[2020-08-02] MEDS ORDERED: predniSONE 10 MG TABLET PO SCH (09:00)
[2020-08-02] MEDS ORDERED: NON-FORMULARY MEDICATION (Omeprazole 20 mg Capsule,Delayed Release(Dr/Ec)) PO SCH (09:00)
[2020-08-02] MEDS ORDERED: INSULIN HUMAN NPH SC SCH (09:00)
[2020-08-02] MEDS ORDERED: PANTOprazole 40 MG TAB PO SCH (09:00)
[2020-08-02] MEDS ORDERED: DAPSONE 100 MG PO SCH (09:00)
[2020-08-02] MEDS ORDERED: DAPSONE 25 MG TAB PO SCH (09:00)
[2020-08-02] MEDS: ACYCLOVIR 400 MG TAB PO SCH (09:26)
[2020-08-02] MEDS ORDERED: ASPIRIN 81 MG ECTAB PO SCH (09:30)
--- NOTE | 2020-08-02 09:44 | Cardiology Consultation ---
Date of Consultation August 02, 2020 Assessment & Plan (1) Atrial fibrillation with RVR: 70-year-old male with a history of relapsed hairy cell leukemia, recent thrombocytopenia including anemia requiring transfusion last month, and thrombocytopenia, presents with newly recognized atrial fibrillation, rapid ventricular response, noted at time of Rituxan infusion. His COVID-19 test was negative. Is difficult to determine the onset of the atrial fibrillation. Previous EKG performed March 2020 revealed sinus rhythm. And the patient had cataract surgery about a month ago, and I would speculate that if he is in atrial fibrillation then it would have been detected. The duration however his atrial fibrillation is difficult to pinpoint, as perhaps onset was yesterday at the time of the infusion at around 2 PM, however he could have already been in atrial fibrillation on arrival just not tachycardic. The patient and his sister both note that he has had a recent cough, but this has not been an issue at present. He does not have any symptoms to suggest underlying sleep apnea he states he does not snore. Recommend ongoing rate control, will discontinue diltiazem infusion and transition to metoprolol tartrate 25 mg twice daily. Echocardiogram reveals normal biventricular systolic function, no pericardial effusion, mild mitral regurgitation mild tricuspid regurgitation which is reassuring. In terms of stroke prophylaxis, the patient's [id number] score is 2 for hype rtension and age > 65 predicting a moderate risk of cardioembolic stroke, however given his recent anemia and thrombocytopenia, he is not a candidate for systemic anticoagulation or pharmacologic or electrical cardioversion at present. Will start a trial of aspirin 81 mg daily. Recent guidelines suggest that the prophylactic benefit of aspirin in stroke prevention for atrial fibrillation are negligible, however, given this patient's risk , I believe it is most reasonable to initiate it. Patient stable from my perspective for discharge. History of Present Illness Attending Physician: Gonzalez Anne MD History of Present Illness Fredrick Strauss is a 70 year old male seen in cardiology consultation per the request of Mónica Maxwell PA-C and Dr Anne for the evaluation of atrial fibrillation. His past medical history is notable for hypertension and stage III chronic kidney disease with eGFR levels in the 50-60 ml/min/m2. He follows with Dr Gerardo of [facility] hemat[facility] oncology for his history of relapsed hairy cell leukemia with pancytopenia. On 06/18/2020, his hemoglobin was as low as 6.4, prompting transfusion of 2 units of packed red blood cells. Hemoglobin improved to 9.6 today. His platelet count has been low in the range of 35-72 with platelet level of 35K yesterday and 43K today. Yesterday he was having an outpatient infusion of Rituxan and became flushed with nursing observation of tremors patient reported feeling cold. The patient received Solu-Cortef 100 mg IV as well as IV Benadryl blood pressure is noted to remain stable, but he became tachycardic. EKG performed at that time at [facility] revealed atrial fibrillation with rapid ventricular response of 125 bpm. Repeat EKG performed in the ED at 1536 revealed ongoing AF at 136 bpm. Patient tells me that he did not have any subjective sensation of palpitations or shortness of breath associated with the atrial fibrillation upon arrival to the emergency room. He received IV diltiazem infusion, as well as oral metoprolol 25 mg every 6 hours, and overnight, the IV diltiazem was discontinued as his heart rates have been well controlled in the 60 to 70 bpm range. EKG performed this morning reveals ongoing atrial fibrillation however his rate is well controlled at 75 bpm. Family History: Father with history of prostate cancer and potential heart rhythm issue, but the patient does not remember any specifics The patient's brother has a history of coronary heart disease and stents. He describes his mother had due to it sounds like a postoperative pulmonary embolism per his description. Social History: [place], his sister who is a nurse has been living with him to help care for him during his treatment. Past Medical History: As above Allergies Allergy/AdvReac Type Severity Reaction Status Date / Time sulfamethoxazole Allergy Hives Unverified 08/01/20 19:24 [From Bactrim] trimethoprim [From Bactrim] Allergy Hives Unverified 08/01/20 19:24 Home Medications Medication Instructions Recorded Confirmed Type Centrum Silver Ultra Men's 1 tab PO QDL 05/02/20 08/01/20 History acyclovir 400 mg PO BID 06/19/20 08/01/20 History dapsone 100 mg PO DAILY 06/19/20 08/01/20 History prochlorperazine maleate 10 mg PO Q6H PRN 06/19/20 08/01/20 History [Compazine] sildenafil 25 mg PO DAILY PRN 06/19/20 08/01/20 History omeprazole 20 mg PO DAILY 08/01/20 08/01/20 History prednisone 40 mg PO DAILY 08/01/20 08/01/20 History Patient History Medical History Family history of malignant hyperthermia Hairy cell leukemia [place] CHEMO 35 YEARS AGO (EVENSENLTY DX WITH AGAIN) History of depression Hx of hematuria Surgical History Family history of malignant hyperthermia SECOND COUSIN DX WITH (NEVER HAD ANY ISSUES) History of cataract surgery [place] History of colonoscopy History of cystoscopy History of tonsillectomy and adenoidectomy History of vascular access device port put in here at [place] 3 weeks ago Tumor BENIGN TUMORS REMOVED FROM BACK Family History Brother Family hx colonic polyps Coronary heart disease Father Cancer Prostate Arrhythmia Social History Smoking Status: Never smoker Second Hand Exposure: No; Hx Alcohol Use: No Hx Substance Use: No Preferred Language: Chinese Communication Ability: Effective Engraving Supervisor Required: No Beliefs That Will Affect Care: None Current Living Situation: Alone Other Information That Helps Us Care for You: No Feels Safe at Home: Yes Safety Concerns: Feels Safe At This Time Assistive Devices: None, Apnea Monitor and Glasses Review of Systems Review of Systems: All systems reviewed & are unremarkable except as noted in HPI & below Physical Exam Physical Exam: Temp Pulse Resp BP Pulse Ox 36.6 C 69 18 115/71 96 08/02/20 07:56 08/02/20 07:56 08/02/20 07:56 08/02/20 07:56 08/02/20 07:56 Constitutional: WD/WN, vitals as above Respiratory: normal respiratory effort, lungs clear to auscultation Cardiovascular: Rate/Rhythm: + irregularly irregular Heart Sounds: no murmur Vessels: no JVD Extremities: no edema Gastrointestinal (Abdomen): normal bowel sounds, soft, nontender, no hepatosplenomegaly Neurologic: PERRL, EOMI, accommodation nl, no face palsy, no dysarthria Results & Data ([facility]) Vital Signs (Past 12 Hours) Vital Signs Temp Pulse Resp BP Pulse Ox 08/02/20 07:56 36.6 C 69 18 115/71 96 08/02/20 04:02 36.4 C L 82 16 113/68 97 08/02/20 00:38 36.8 C 76 16 109/59 L 100 Laboratory Results Cardiac Enzymes 08/01/20 08/02/20 Range/Units 15:44 06:03 AST 19 16 (15-37) U/L Troponin I < 0.015 (0-0.045) ng/ml Coagulation 08/01/20 Range/Units 15:44 PT 12.2 H (9.0-12.0) Seconds APTT 37.4 H (21.0-31.0) Seconds CBC 08/01/20 08/02/20 Range/Units 15:44 06:03 WBC 1.01 L 1.20 L (4.8-10.8) K/uL RBC 2.91 L 2.96 L (4.7-6.1) M/uL Hgb 9.5 L 9.6 L (14.0-18.0) g/dL Hct 29.9 L 30.5 L (42-52) % Plt Count 35 L 43 L (130-400) K/uL Neut # (Auto) 0.97 L* 1.15 L (1.4-6.5) K/uL Lymph # (Auto) 0.02 L 0.03 L (1.2-3.4) K/uL [place] # (Auto) 0.01 L 0.01 L (0.11-0.59) K/uL Eos # (Auto) 0.00 0.00 (0-0.5) K/uL Baso # (Auto) 0.00 0.00 (0-0.2) K/uL Comprehensive Metabolic Panel 08/01/20 08/02/20 Range/Units 15:44 06:03 Sodium 140 140 (136-145) mmol/L Potassium 4.5 4.1 (3.5-5.1) mmol/L Chloride 107 107 (98-107) mmol/L Carbon Dioxide 29 28 (21-32) mmol/L BUN 21 H 25 H (7-18) mg/dl Creatinine 1.01 1.04 (0.6-1.4) mg/dl Glucose 192 H 162 H (70-99) mg/dl Calcium 7.9 L 8.1 L (8.5-10.1) mg/dl AST 19 16 (15-37) U/L ALT 38 37 (12-78) U/L Alkaline Phosphatase 46 51 (45-117) U/L Total Protein 6.1 L 5.9 L (6.4-8.2) gm/dl Albumin 4.0 3.6 (3.4-5.0) gm/dl Intake and Output 08/01/20 08/02/20 08/02/20 22:59 06:59 14:59 Intake Total 1062.916 / 1387.499 324.583 / 1387.499 0 / 0 Output Total Balance 1062.916 / 1386.499 323.583 / 1386.499 0 / 0 Intake: IV 1062.916 / 1087.499 24.583 / 1087.499 0 / 0 Nss 1000ML 1,000 ml @ 999 mls/ 1000 / 1000 hr IV .Q1H1M ONE Rx#:[id number] Cardizem 125 mg In D5 100 ml @ 62.916 / 87.499 24.583 / 87.499 0 / 0 5 MG/HR 5 mls/hr IV .Q24H [facility] Rx#:[id number] Oral 300 / 300 Output: # Bowel Movements Other: # Unmeasured Voids 2 Weight 111.9 kg 101.5 kg Weight Measurement Method Standing Scale Standing Scale Diagnostic Findings EKG tracings as noted in HPI Echocardiogram performed this morning 08/02/2020 and reviewed independently by the undersigned: Mild concentric left ventricular hypertrophy with no regional left ventricular wall motion abnormalities, LVEF 55 to 60%. The right ventricular chamber size and systolic function is normal. Mild mitral vegetation is present. Mild tricuspid regurgitation is present, without evidence of pulmonary hypertension, estimated pulmonary artery systolic pressure 34 mmHg. Mild left atrial enlargement.
[2020-08-02] MEDS ORDERED: Nursing to Pharmacy Communication SCH (10:00)
[2020-08-02] MEDS ORDERED: MULTIVIT MIN FA LYCOPEN LUTEIN PO SCH (11:30)
[2020-08-02] MEDS ORDERED: CEROVITE ADV FORMULA TAB PO SCH (11:30)
[2020-08-02] MEDS ORDERED: [UNRECOGNIZED DRUG - OTHER] PO SCH (11:30)
[2020-08-02] MEDS ORDERED: INSULIN ASPART 100 UNITS/ML 3 ML PEN SC SCH (11:30)
--- NOTE | 2020-08-02 12:20 | Communication Note ---
Date of Service: August 02, 2020 By CMS guidelines, a determination that the admission or continued stay is not medically necessary has been made by a member of the Utilization Review c ommittee and a physician for this hospital stay. Therefore, a Code 44 will be completed and the inpatient admission will be changed to outpatient. Mireya Pulido DO
--- NOTE | 2020-08-02 12:28 | Discharge Summary ---
Date of Service August 02, 2020 Admission HPI Per Admitting Provider This is a 70-year-old male with significant past medical history of hairy cell leukemia who presents to ED secondary to transfusion reaction to Rituxan with facial flushing and afib with RVR prior to arrival. Of significance patient has a past medical history of hairy cell leukemia initially diagnosed in 1989. This is his third relapse. He finished 2 cycles of chemo 8 weeks ago (s/p 2 CDA completed 05/18/20) with no improvement. He follows Dr. Gerardo and he presented to [facility] today for first dose of rituxan. After injection his heart rate increased significantly while hooked up on monitor, had facial flushing, chills and legs and feel tingled. He did not feel palpitation. HR were in 110s-120s. Infusion was stopped and he was given Solu-Cortef 100 mg IV push, Benadryl 25 mg IV push an additional 62.5 mg of Solu-Medrol. Furthermore, last one week complains of lightheadedness with bending over, increased leg cramps, tickle in throat, and dry cough. He denies fever, chills, KEE, chest pain, sore throat, congestion, rhinorrhea, n/v/d, constipation, abdominal pain, difficulty urinating, dysuria, melena, hematochezia. Pain in legs located in quads and calf. Denies hx of neuropathy. Has had 2 episodes of epistaxis in last few weeks. Denies recent easily bruising or hemoptysis but has had easy bruising in past. Pt also has been on high dose prednisone therapy, initially started 06/26/20 on 70mg daily. Currently he is on 40mg daily and tapering down weekly. In ED he was in afib with RVR. Received 10mg bolus of diltiazem and started on gtt with improvement of heart rates. Noted to be considerably pancytopenic but unchanged from baseline. Absolute neutrophil count 0.97, H&H 9.5 and 29.9, platelet 35. Does have hyperglycemia with a glucose of 192 and hypocalcemic at 7.9. Admission Exam Per Admitting Provider Constitutional: WD/WN, vitals as above, NAD, sitting up in bed, pleasant, conversing easily Head: Normocephalic, Atraumatic Eyes: PERRL, conjunctivae normal, anicteric sclerae ENMT: external ear and nose normal, oropharynx normal Neck: trachea midline, no thyromegaly normal visual inspection Respiratory: normal respiratory effort, lungs clear to auscultation, no wheeze, rales, rhonchi. Normal insp/exp effort, no accessory muscle use Cardiovascular: IRR/IRR, no murmur, no edema Vessels: no JVD or carotid bruit Chest:R Port in place, no erythema, normal inspection of chest Abdomen: normal bowel sounds, soft, nontender, no hepatosplenomegaly Musculoskeletal: no cyanosis or clubbing, extremities motor strength 5/5 Skin: no rashes, warm and dry normal turgor Neurologic: PERRL, EOMI, accommodation nl, no face palsy, no dysarthria CN's II-XI intact bilaterally and moves all extremities Psychiatric: A+Ox3, euthymic affect : deferred Principal Diagnosis Atrial fibrillation w/ RVR Neutropenia Pancytopenia in the setting of hairy cell leukemia Hypocalcemia Discharge Exam Constitutional: WD/WN, NAD, sitting up in bed Head: Normocephalic, Atraumatic Eyes: PERRL, conjunctivae normal, anicteric sclerae ENMT: external ear and nose normal, oropharynx normal Neck: trachea midline, no thyromegaly normal visual inspection Respiratory: normal respiratory effort, lungs clear to auscultation, no wheeze, rales, rhonchi. Normal insp/exp effort, no accessory muscle use Cardiovascular: IRR/IRR, no murmur, no edema Vessels: no JVD or carotid bruit Chest:R Port in place, no erythema, normal inspection of chest Abdomen: normal bowel sounds, soft, nontender, +splenomegaly Musculoskeletal: no cyanosis or clubbing, extremities motor strength 5/5 Skin: no rashes, warm and dry normal turgor Neurologic: PERRL, EOMI, no face palsy, no dysarthria CN's II-XI intact bilaterally and moves all extremities Psychiatric: A+Ox3, euthymic affect Discharge Data Allergies Allergy/AdvReac Type Severity Reaction Status Date / Time sulfamethoxazole Allergy Hives Unverified 08/01/20 19:24 [From Bactrim] trimethoprim [From Bactrim] Allergy Hives Unverified 08/01/20 19:24 Consultations 08/01/20 16:41 ED Decision to Admit Stat 08/01/20 17:04 Consult Cardiology Routine Hospital Course (1) Atrial fibrillation with RVR: This is a 70-year-old male who with significant past medical history hairy cell leukemia who presents to ED secondary to transfusion reaction to Rituxan with facial flushing and afib with RVR prior to arrival. Afib with RVR in setting of possible infusion reaction to rituxan. Received 10 mg of oral diltiazem and started on diltiazem drip. Admitted to PCU Continued diltiazem drip, stopped overnight Consulted cardiology - spoke with Dr. Jarrell Initiated metoprolol tartrate 25 mg PO every 6 hours, first dose on admission Now recommend to discharge on metoprolol 25 mg BID, ASA 81 mg daily IV heparin contraindicated in setting of thrombocytopenia, platelet 35 anticoag. contraindicated [id number] 2 (age and HTN) check mag and tsh, TSH 0.27 keep K > 4, mag > 2.0 replaced calcium (2) Hairy cell leukemia: (3) Pancytopenia: Patient initially diagnosed with hairy cell leukemia in [address] Gerardo. Currently is in third relapse. Treated with chemotherapy s/p 2 CDA complete 05/18/2020 Treatment refractory and presented today for first dose of Rituxan (to be weekly x4 weeks) Pancytopenia d/t hairy cell leukemia WBC 1.01 ANC0.97 PLT 35 H&H 9.5 and 29.9 neutropenic precautions continue acyclovir, dapsone and prednisone current prednisone taper is 40mg to be tapered down weekly ( 30mg to start 08/07/20) (4) Hypocalcemia: Ca 7.9 in setting of normal albumin Gave 1 g calcium gluconate x1 on admission May be contributing to patients leg cramping Follow up as outpt (5) Hyperglycemia: pt bsg 196, likely steroid induced has been on high dose prednisone since 06/26 currently on 40mg daily accuchecks, Novolog and lantus per protocol place on carb consistent diet Current Hgb a1c 4.8% glycemic pharmacy consult due to steroid induced hyperglycemia (6) DVT prophylaxis: none in setting of plt 35 reassess daily need for dvt prophylaxis Disposition: admitted to PCU for close observation and tele, pt to be discharged home today Follow up: PCP Dr. Jones upon discharge Total Time Total Time Spent Total Time Spent (In Minutes): 37 Total Time Includes: Examination of the Patient, Discharge Planning, Medication Reconciliation and Communication With Other Providers Discharge Plan Discharge Items Patient Disposition: Home - Self-Care Reason For Visit: AFIB RVR Discharge Diagnosis: Atrial fibrillation w/ RVR Neutropenia Pancytopenia in the setting of hairy cell leukemia Hypocalcemia Activity: Per Instructions section Non-emergency contact: Primary Care Provider and Oncologist Call non-emergency contact if: you have any medication questions and your symptoms worsen Follow-up/Referrals: Adrien Jones MD [Primary Care Provider] - (Date & Time 08/08/2020 2:00 PM Provider Adrien Jones III, MD Department [facility] ) Diet: Carb Consistent or DM2 Addtl Attending Provider Instructions: Follow up with your primary care doctor, the appointment was scheduled for you for 08/08/2020. Take metoprolol 25 mg twice a day to control your heart rate. Also recommend to take aspirin 81 mg a day. Pending Studies at Discharge: No Stand-Alone Forms: My [facility] Travel, Smoking Cessation Medications and DC Order Prescriptions: New metoprolol tartrate 25 mg Tablet 25 mg PO BID 30 Days Qty: 60 RF: 0 aspirin 81 mg Tablet,Delayed Release (Dr/Ec) 81 mg PO QAM 30 Days Qty: 30 RF: 0 Continued Centrum Silver Ultra Men's 300-600-300 mcg Tablet 1 tab PO QDL RF: 0 prochlorperazine maleate [Compazine] 10 mg Tablet 10 mg PO Q6H PRN (Reason: Nausea) RF: 0 acyclovir 400 mg Tablet 400 mg PO BID RF: 0 sildenafil 25 mg Tablet 25 mg PO DAILY PRN (Reason: Erectile Dysfunction) RF: 0 dapsone 100 mg Tablet 100 mg PO DAILY RF: 0 prednisone 10 mg Tablet 40 mg PO DAILY RF: 0 omeprazole 20 mg Capsule,Delayed Release(Dr/Ec) 20 mg PO DAILY RF: 0 Discharge Orders: Discharge Order (Routine); Ordered 08/02/20 Ordered By: Gonzalez Anne Admission Data Admit Date/Time: 08/01/20 17:04 Attending Provider: Gonzalez Anne Admit Provider: Arabella Rojo I. Primary Care Provider: Frio,Adrien E. Other Providers: John Jarrell ; Arabella Rojo I.
[2020-08-02] MEDS ORDERED: METOPROLOL TARTRATE 25 MG TAB PO SCH (21:00)
--- NOTE | 2020-08-03 06:03 | Electrocardiogram Report ---
Test Reason : Blood Pressure : / mmHG Vent. Rate : 075 BPM Atrial Rate : 214 BPM P-R Int : 000 ms QRS Dur : 094 ms QT Int : 384 ms P-R-T Axes : 000 028 002 degrees QTc Int : 428 ms Atrial fibrillation Abnormal ECG When compared with ECG of 01-AUG-2020 15:36, Vent. rate has decreased BY 61 BPM Confirmed by New Issa ([id number]) on 08/03/2020 6:03:19 AM Referred By: REFERRED SELF Confirmed By:New Issa
== END 2020-08-02 13:25 | disposition home or self-care (01) ==
LOC: ED 15:30 → INTOOBSV 17:04 → SUATTDRO 17:04 → 2S 17:04

== ENCOUNTER 2021-01-23 21:58 | Inpatient (IN) ==
[2021-01-23] MEDS ORDERED: SODIUM CHLORIDE 0.9% 1000ML 1,000 ML IV ONE (23:24)
[2021-01-23] MEDS ORDERED: CEFEPIME 2,000 MG/20 ML VIAL IV STA (23:24)
[2021-01-23] MEDS ORDERED: ACETAMINOPHEN 325 MG TAB PO STA (23:26)
--- NOTE | 2021-01-23 23:30 | Emergency Department Note ---
History of Present Illness General Chief complaint: Fever Stated complaint: FEVER Time Seen by Provider: 01/23/21 23:06 Source: patient and family Mode of arrival: ambulatory Limitations: no limitations History of Present Illness This patient is a 70-year-old male has history of hairy cell leukemia and had his tooth pulled today, comes in after an fever started this evening. It was 101.2 and is up to 101.8. He says he does not any dental pain. He did hit take amoxicillin 2 g prior to this. His energy has been decreased has been coughing more than usual today. He was Covid tested today for a pending surgery to remove his port. He was hospitalized at [place] about 4 weeks ago after having a prolonged stay there after apparently going into renal failure after being on immunotherapy. He has A. fib which is chronic he takes a baby aspirin for this. He says when he coughs he feels like it slimy bubbles. Denies chest pain he has some shortness of breath with it. No abdominal pain. No dysuria hematuria no rash or tick bites. He is on dapsone and acyclovir as a preventative. He is followed by Dr. Bahena from a oncologic standpoint as well as Dr. Jones. He is allergic to Bactrim but denies that he has any other antibiotic allergies. Home Medications Medication Instructions Recorded Confirmed Type acyclovir 400 mg tablet 800 mg PO BID 06/19/20 01/18/21 History dapsone 100 mg tablet 100 mg PO QAM 06/19/20 01/18/21 History allopurinol 100 mg tablet 100 mg PO QAM 01/18/21 01/18/21 History aspirin 81 mg tablet,delayed 81 mg PO QAM 01/18/21 01/18/21 History release metoprolol succinate 100 mg 150 mg PO BID 01/18/21 01/18/21 History tablet,extended release 24 hr Allergies Allergy/AdvReac Type Severity Reaction Status Date / Time sulfamethoxazole Allergy Hives Verified 01/18/21 12:12 [From Bactrim] trimethoprim [From Bactrim] Allergy Hives Verified 01/18/21 12:12 Past Med/Surg History Medical History Atrial fibrillation Follows with Dr. Hampton Chronic anemia Family history of malignant hyperthermia Fluid retention Legs/feet fluid retention + ALFONZO (requiring dialysis 11/2020 x2 weeks) r/t chemo drugs during [facility] hospitalization for PNA Hairy cell leukemia Chemo 35 years ago (recent recurrence) Temporomandibular joint disorder + clicking, no locking Thrombocytopenia Surgical History Family history of malignant hyperthermia Second cousin MH (no personal hx of anesthesia issues/no available general anesthesia records) History of cataract surgery Right History of colonoscopy History of cystoscopy History of tonsillectomy and adenoidectomy History of vascular access device A-port placement (05/07/20): MAC at [facility] (2 units platelets given in ASU preop) Tumor Benign tumor excisions from back Family History Brother Coronary heart disease Family hx colonic polyps Father Arrhythmia Cancer Prostate Family/Other Family history of diabetes mellitus NIECE Social History Smoking Status: Never smoker Second Hand Exposure: No; Hx Alcohol Use: No Hx Substance Use: No Preferred Language: Hebrew Communication Ability: Effective 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 Beliefs That Will Affect Care: None Current Living Situation: Alone current occupational status: retired Feels Safe at Home: Yes Assistive Devices: Glasses Review of Systems A total of 10 systems reviewed and were otherwise negative Physical Exam Vital Signs Vital Signs - 24 hr 01/23/21 22:05 01/23/21 23:39 01/23/21 23:41 Temperature 38.8 C H Temperature Source Temporal Artery Scan Pulse Rate 114 H 117 H Pulse Rate [Apical] Pulse Rate from SpO2 Sensor 104 H Respiratory Rate 20 18 Respiratory Effort / Characteristics Non-Labored Spontaneous Respiratory Depth Normal Respiratory Pattern Regular Blood Pressure 114/71 156/87 H Blood Pressure [Left Arm] Blood Pressure Mean 85 110 Blood Pressure Mean [Left Arm] Blood Pressure Position Sitting Pulse Oximetry 94 94 94 Oxygen Delivery Method Room Air Room Air Room Air Sepsis Recent Fever Within 48 Hours Yes Sepsis New/Unexplained Change in Mental Status No Sepsis Action Taken by Nursing No Action Required 01/24/21 00:10 01/24/21 00:30 01/24/21 00:59 Temperature 38.2 C H Temperature Source Oral Pulse Rate 112 H Pulse Rate [Apical] 86 Pulse Rate from SpO2 Sensor Respiratory Rate 18 18 Respiratory Effort / Characteristics Respiratory Depth Respiratory Pattern Blood Pressure 141/86 H Blood Pressure [Left Arm] 173/83 H Blood Pressure Mean 104 Blood Pressure Mean [Left Arm] 113 Blood Pressure Position Pulse Oximetry 93 99 Oxygen Delivery Method Room Air Sepsis Recent Fever Within 48 Hours Sepsis New/Unexplained Change in Mental Status Sepsis Action Taken by Nursing 01/24/21 01:00 Temperature Temperature Source Pulse Rate 126 H Pulse Rate [Apical] Pulse Rate from SpO2 Sensor Respiratory Rate 15 Respiratory Effort / Characteristics Respiratory Depth Respiratory Pattern Blood Pressure 172/103 H Blood Pressure [Left Arm] Blood Pressure Mean 126 Blood Pressure Mean [Left Arm] Blood Pressure Position Pulse Oximetry 98 Oxygen Delivery Method Room Air Sepsis Recent Fever Within 48 Hours Sepsis New/Unexplained Change in Mental Status Sepsis Action Taken by Nursing Course Administered Medications Discontinued Medications Acetaminophen (Acetaminophen 325 Mg Tab) 650 mg PO NOW STA Stop: 01/23/21 23:27 Last Admin: 01/24/21 00:07 Dose: 650 mg Documented by: [id number] Sodium Chloride (Nss 1000ml) 1,000 mls @ 999 mls/hr IV .Q1H1M ONE Stop: 01/24/21 00:24 Last Infusion: 01/24/21 01:15 Dose: 0 mls/hr Documented by: [id number] Admin: 01/24/21 00:07 Dose: 999 mls/hr Documented by: [id number] Cefepime HCl (Maxipime) 2,000 mg in 20 mls @ 5 mls/min IV NOW STA; Protocol Stop: 01/23/21 23:27 Last Admin: 01/24/21 00:08 Dose: 5 mls/min Documented by: [id number] Medical Decision Making Differential Diagnosis Sepsis, Covid, pneumonia, cancer complication, UTI, central line infection, electrolyte or metabolic abnormalities. Medical Records Attestation: I reviewed the patient's medical records. Home Medications Current Medication List: was personally reviewed by me Laboratory Data Attestation: I reviewed the patient's lab results. Result diagrams: 01/23/21 23:00 01/23/21 23:00 Lab Results 01/23/21 01/23/21 01/23/21 Range/Units 23:00 23:00 23:43 WBC 5.38 (4.8-10.8) K/uL RBC 3.58 L (4.7-6.1) M/uL Hgb 11.3 L (14.0-18.0) g/dL Hct 34.4 L (42-52) % MCV 96.1 (80-100) fL MCH 31.6 (25-34) pg MCHC 32.8 (32-36) g/dL RDW Std Deviation 59.2 H (36.4-46.3) fL RDW Coeff of Dale 16.7 H (11.5-14.5) % Plt Count 139 (130-400) K/uL MPV 9.0 (7.4-10.4) fL Immature Gran % (Auto) 0.2 % Neut % (Auto) 92.2 % Lymph % (Auto) 2.6 % [place] % (Auto) 3.5 % Eos % (Auto) 1.5 % Baso % (Auto) 0.0 % Neut # (Auto) 4.96 (1.4-6.5) K/uL Lymph # (Auto) 0.14 L (1.2-3.4) K/uL [place] # (Auto) 0.19 (0.11-0.59) K/uL Eos # (Auto) 0.08 (0-0.5) K/uL Baso # (Auto) 0.00 (0-0.2) K/uL Immature Gran # (Auto) 0.01 (0.00-0.02) K/uL PT (9.0-12.0) Seconds INR (0.9-1.1) APTT (21.0-31.0) Seconds PTT Ratio Sodium 140 (136-145) mmol/L Potassium 4.4 (3.5-5.1) mmol/L Chloride 109 H (98-107) mmol/L Carbon Dioxide 26 (21-32) mmol/L Anion Gap 5.0 (3-11) BUN 21 H (7-18) mg/dl Creatinine 1.80 H (0.6-1.4) mg/dl Est Cr Clr Drug Dosing 47.9 ml/min Est GFR ( Amer) 42.9 ml/min Est GFR (Non-Af Amer) 37.0 ml/min BUN/Creatinine Ratio 11.8 (10-20) Glucose 115 H (70-99) mg/dl Lactate (0.4-2.0) mmol/L Calcium 8.9 (8.5-10.1) mg/dl Magnesium 2.3 (1.8-2.4) mg/dl Total Bilirubin 1.6 H (0.2-1) mg/dl AST 20 (15-37) U/L ALT 23 (12-78) U/L Alkaline Phosphatase 58 (45-117) U/L Total Protein 6.7 (6.4-8.2) gm/dl Albumin 4.2 (3.4-5.0) gm/dl Globulin 2.5 (2.5-4.0) gm/dl Albumin/Globulin Ratio 1.7 (0.9-2) Procalcitonin (0-0.5) ng/ml COVID-19 Eval Order Covid19 at [facility] SARS-CoV-2 (PCR) (Negative) 01/23/21 01/23/21 01/23/21 Range/Units 23:43 23:54 23:54 WBC (4.8-10.8) K/uL RBC (4.7-6.1) M/uL Hgb (14.0-18.0) g/dL Hct (42-52) % MCV (80-100) fL MCH (25-34) pg MCHC (32-36) g/dL RDW Std Deviation (36.4-46.3) fL RDW Coeff of Dale (11.5-14.5) % Plt Count (130-400) K/uL MPV (7.4-10.4) fL Immature Gran % (Auto) % Neut % (Auto) % Lymph % (Auto) % [place] % (Auto) % Eos % (Auto) % Baso % (Auto) % Neut # (Auto) (1.4-6.5) K/uL Lymph # (Auto) (1.2-3.4) K/uL [place] # (Auto) (0.11-0.59) K/uL Eos # (Auto) (0-0.5) K/uL Baso # (Auto) (0-0.2) K/uL Immature Gran # (Auto) (0.00-0.02) K/uL PT 11.7 (9.0-12.0) Seconds INR 1.2 H (0.9-1.1) APTT 27.3 (21.0-31.0) Seconds PTT Ratio 1.0 Sodium (136-145) mmol/L Potassium (3.5-5.1) mmol/L Chloride (98-107) mmol/L Carbon Dioxide (21-32) mmol/L Anion Gap (3-11) BUN (7-18) mg/dl Creatinine (0.6-1.4) mg/dl Est Cr Clr Drug Dosing ml/min Est GFR ( Amer) ml/min Est GFR (Non-Af Amer) ml/min BUN/Creatinine Ratio (10-20) Glucose (70-99) mg/dl Lactate 1.4 (0.4-2.0) mmol/L Calcium (8.5-10.1) mg/dl Magnesium (1.8-2.4) mg/dl Total Bilirubin (0.2-1) mg/dl AST (15-37) U/L ALT (12-78) U/L Alkaline Phosphatase (45-117) U/L Total Protein (6.4-8.2) gm/dl Albumin (3.4-5.0) gm/dl Globulin (2.5-4.0) gm/dl Albumin/Globulin Ratio (0.9-2) Procalcitonin (0-0.5) ng/ml COVID-19 Eval Order SARS-CoV-2 (PCR) NEGATIVE (Negative) 01/23/21 Range/Units 23:54 WBC (4.8-10.8) K/uL RBC (4.7-6.1) M/uL Hgb (14.0-18.0) g/dL Hct (42-52) % MCV (80-100) fL MCH (25-34) pg MCHC (32-36) g/dL RDW Std Deviation (36.4-46.3) fL RDW Coeff of [place] (11.5-14.5) % Plt Count (130-400) K/uL MPV (7.4-10.4) fL Immature Gran % (Auto) % Neut % (Auto) % Lymph % (Auto) % [place] % (Auto) % Eos % (Auto) % Baso % (Auto) % Neut # (Auto) (1.4-6.5) K/uL Lymph # (Auto) (1.2-3.4) K/uL [place] # (Auto) (0.11-0.59) K/uL Eos # (Auto) (0-0.5) K/uL Baso # (Auto) (0-0.2) K/uL Immature Gran # (Auto) (0.00-0.02) K/uL PT (9.0-12.0) Seconds INR (0.9-1.1) APTT (21.0-31.0) Seconds PTT Ratio Sodium (136-145) mmol/L Potassium (3.5-5.1) mmol/L Chloride (98-107) mmol/L Carbon Dioxide (21-32) mmol/L Anion Gap (3-11) BUN (7-18) mg/dl Creatinine (0.6-1.4) mg/dl Est Cr Clr Drug Dosing ml/min Est GFR ( Amer) ml/min Est GFR (Non-Af Amer) ml/min BUN/Creatinine Ratio (10-20) Glucose (70-99) mg/dl Lactate (0.4-2.0) mmol/L Calcium (8.5-10.1) mg/dl Magnesium (1.8-2.4) mg/dl Total Bilirubin (0.2-1) mg/dl AST (15-37) U/L ALT (12-78) U/L Alkaline Phosphatase (45-117) U/L Total Protein (6.4-8.2) gm/dl Albumin (3.4-5.0) gm/dl Globulin (2.5-4.0) gm/dl Albumin/Globulin Ratio (0.9-2) Procalcitonin 0.18 (0-0.5) ng/ml COVID-19 Eval Order SARS-CoV-2 (PCR) (Negative) Imaging Data Attestation: I personally reviewed and interpreted this imaging study as follows: My Impression: Chest x-raythere appears to be infiltrate in the right base when compared to old. No CHF. ECG Data Attestation: I personally reviewed and interpreted this ECG as follows: Indication: + weakness MDM Narrative This patient comes in as described above. He was placed on a pvc monitor in room C 12. He is here after having a fever he had tooth pulled today. He did not is immunocompromise as he has hairy cell leukemia. He also is a port in place. IV access established, I did order a sepsis type work-up. On exam he had his right upper molar removed there is a small amount of blood clot in there but no swelling. The posterior oropharynx is wide open. He was given cefepime 2 g IV for broad-spectrum coverage. He was Covid tested. Chest x-ray was also obtained and multiple blood testing. He was given a small fluid bolus as well. He was reassessed frequently. His white count is 5 and therefore is not neutropenic. Chest x-ray is suggestive for pneumonia in the right base. He has no significant electrolyte or metabolic abnormalities he does have baseline renal insufficiency with a creatinine of 1.8. It was 1.7 when labs were drawn on January 10. I do think he needs to be admitted/observe for further inpatient treatment and evaluation given the fact that he has a high fever and is immunocompromised Continuous cardiac monitoring: Orders placed in EMR for continuous cardiac monitoring. Upon my evaluation the patient was noted to be A. fib with a rate of 110. Impression & Plan Sepsis, Hairy cell leukemia, Pneumonia, Lab test negative for COVID-19 virus, A-fib Discharge Plan Visit Data Chief Complaint: Fever Stated Complaint: FEVER ED Provider: Andre Waterman Discharge Problem: Sepsis, Hairy cell leukemia, Pneumonia, Lab test negative for COVID-19 virus, A-fib Forms Stand Alone Forms: My [facility] Prescriptions Prescriptions: No Action acyclovir 400 mg Tablet 800 mg PO BID RF: 0 dapsone 100 mg Tablet 100 mg PO QAM RF: 0 allopurinol 100 mg Tablet 100 mg PO QAM RF: 0 aspirin [Aspir-81] 81 mg Tablet,Delayed Release (Dr/Ec) 81 mg PO QAM RF: 0 metoprolol succinate 100 mg Tablet Extended Release 24 Hr 150 mg PO BID RF: 0 Referrals Referrals: Adrien Jones MD [Primary Care Provider] -
[2021-01-23 23:33] LABS: Eosinophils # (auto) 0.08 K/uL (0-0.5); Eosinophils % (auto) 1.5 %; Hematocrit (blood only) 34.4 % (42-52); Hemoglobin 11.3 g/dL (14.0-18.0); Immature Granulocytes # (auto) 0.01 K/uL (0.00-0.02); Immature Granulocytes % (auto) 0.2 %; Lymphocytes # (auto) 0.14 K/uL (1.2-3.4); Lymphocytes % (auto) 2.6 %; Mean Corpuscular Hemoglobin 31.6 pg (25-34); Mean Corpuscular Hgb Conc 32.8 g/dL (32-36); Mean Corpuscular Volume 96.1 fL (80-100); Monocytes # (auto) 0.19 K/uL (0.11-0.59); Monocytes % (auto) 3.5 %; Neutrophils # (auto) 4.96 K/uL (1.4-6.5); Neutrophils % (auto) 92.2 %; Platelet Count 139 K/uL (130-400); RDW Coefficient of Variation 16.7 % (11.5-14.5); RDW Standard Deviation 59.2 fL (36.4-46.3); Red Blood Count 3.58 M/uL (4.7-6.1); White Blood Count 5.38 K/uL (4.8-10.8)
[2021-01-23 23:50] LABS: Albumin Level 4.2 gm/dl (3.4-5.0); BUN Creatinine Ratio 11.8 (10-20); Calcium 8.9 mg/dl (8.5-10.1); Creatinine Clr Calc Pharmacy 47.9 ml/min; Est GFR (African American) 42.9 ml/min; Magnesium 2.3 mg/dl (1.8-2.4); Potassium 4.4 mmol/L (3.5-5.1)
[2021-01-23 23:53] LABS: Albumin Globulin Ratio 1.7 (0.9-2); Bilirubin,Total 1.6 mg/dl (0.2-1); Globulin 2.5 gm/dl (2.5-4.0); Total Protein 6.7 gm/dl (6.4-8.2)
[2021-01-24 00:20] LABS: INR 1.2 (0.9-1.1); Partial Thromboplastin Time 27.3 Seconds (21.0-31.0); Prothrombin Time 11.7 Seconds (9.0-12.0)
[2021-01-24] MEDS ORDERED: ACYCLOVIR 400 MG TAB PO STA (01:55)
[2021-01-24] MEDS ORDERED: METOPROLOL SUCC 50MG EXT REL TAB PO STA (01:55)
[2021-01-24] MEDS ORDERED: NITROGLYCERIN SL 0.4 MG/TAB TAB SL PRN (03:06)
[2021-01-24] MEDS ORDERED: PIPERACILL/TAZOBAC CONSULT ACTIVE PRN (03:06)
[2021-01-24] MEDS ORDERED: ACETAMINOPHEN 325 MG TAB PO PRN (03:06)
--- NOTE | 2021-01-24 04:12 | History and Physical Report ---
DATE OF ADMISSION: 01/24/2021. CHIEF COMPLAINT: Fever. HISTORY OF PRESENT ILLNESS: This is a 70-year-old male with past medical history significant for hairy cell leukemia diagnosed in 1988, history of thrombocytopenia, history of neutropenia, history of chronic kidney disease stage III, history of steroid-induced hyperglycemia. Recently in November, he was hospitalized in [facility] after he developed acute renal failure after chemotherapy, got dialysis for almost 2 weeks. Dialysis catheter was removed prior to hospital discharge. The patient also had developed new-onset atrial fibrillation during that hospitalization, but no anticoagulation because of severe history of anemia from the hairy cell leukemia and also chronic neutropenia and thrombocytopenia. Also recently, creatinine seems to be 1.7 and he has significant lower extremity edema thought to be because of recent renal failure and nephrology recently started on torsemide. The patient states he has not started to take it yet. The patient had two wisdom teeth extracted earlier in the day and was given amoxicillin, but after going home he developed fever to 101.8, so that is why he came here. In the ER, his temperature was 38.2, pulse was in 100s, no leukocytosis. Creatinine is 1.8. Because of ongoing fever and because of his underlying leukemia, the patient is getting admitted. The patient received a dose of cefepime in the ER. Currently, resting comfortably and hemodynamically stable. Denies any pain, no headache. Always has blurred visions. No earache. He has some runny nose since the chemo . Treated for pneumonia 1 month ago, and since then he some cough. Once in a while he brings up some bubble kind of phlegm. He did not eat much today. No difficulty swallowing. No chest pain. No shortness of breath, no nausea, no abdominal pain, normal bowel and bladder movements. Chronic lower extremity edema. Ambulates okay. ALLERGIES: BACTRIM. PAST MEDICAL HISTORY: As mentioned above. PAST SURGICAL HISTORY: Colonoscopy, tonsillectomy, implantable access. MEDICATIONS: The patient is on acyclovir 800 mg p.o. b.i.d., allopurinol 100 mg p.o. daily, aspirin 81 mg p.o. daily, dapsone 100 mg p.o. daily, metoprolol succinate 150 mg p.o. b.i.d., folic acid 1 mg p.o. daily, torsemide 10 mg p.o. daily. FAMILY HISTORY: Significant for mother had cancer, brother had heart disorder, father has prostate cancer. SOCIAL HISTORY: . No smoking, no alcohol, no drug use. REVIEW OF SYSTEMS: As per HPI. Rest of review of systems are negative. PHYSICAL EXAMINATION: GENERAL: The patient is of moderate build, not in acute distress. VITAL SIGNS: Temperature 38.2, pulse 93, respiratory rate 22, blood pressure 129/95, oxygen 98% on room air. HEENT: Pupils equal, round and reactive to light. Oral mucosa moist. NECK: No JVD, no neck masses. CARDIOVASCULAR: S1 and S2 heard. Regular rate and rhythm. No murmur, no gallop. RESPIRATORY: Normal AP diameter. No accessory muscle use. No wheezing, no crackles. ABDOMEN: Soft, bowel sounds present, nontender, no distention. CENTRAL NERVOUS SYSTEM: Cranial nerves II-XII grossly intact, nonfocal. EXTREMITIES: Bilateral lower extremity edema, +2 edema present, no erythema seen. LABORATORY DATA: WBC 5.3, hemoglobin 11.3, hematocrit 34.4, platelets 139. PT 11.7, INR 1.2, APTT 27.3. Sodium 140, potassium 4.4, chloride 109, bicarbonate 26, BUN 21, creatinine 1.8, serum glucose 115. Lactate 1.4, calcium 8.8, magnesium 2.3, total bilirubin 1.6, AST 20, ALT 23, alkaline phosphatase 58. Procalcitonin 0.18. SARS-CoV-2 PCR negative. IMAGING DATA: Chest x-ray, no acute findings seen. EKG: Atrial fibrillation with rapid ventricular response at a rate of 114, nonspecific T-wave abnormality seen. ASSESSMENT AND PLAN: This is a 70-year-old male, who presents with fever. 1. Fever: The patient has underlying hairy cell leukemia. Recently received chemotherapy 1 month ago,diagnosed with pneumonia. Today, he had two of his wisdom teeth extracted and developed fever. Empirically starting on Zosyn. We will follow the cultures. Follow in the med tele. 2. Hairy cell leukemia: Currently last month he had a bad reaction for chemo with renal failure requiring dialysis for 2 weeks. Currently, no plan for any further chemo. There is a plan to take out the med port as its not working, follow up with hem/onc. 3. History of atrial fibrillation: Following with cardiology. Rate controlled with Toprol-XL. No plan for anticoagulation because of contraindication secondary to hairy cell leukemia with history of pancytopenia and hemolytic anemia. 4. Hypertension: Continue his home medications. We will monitor the blood pressure. 5. Pedal edema: Recently started on torsemide, the patient has not started yet. With currently ongoing fever, will hold it. 6. Deep venous thrombosis prophylaxis: Sequential compression devices for now. DISPOSITION: Closely monitor in the med rec. Level 1 full code. Expect to discharge home and follow with family doctor. Job ID: [id number] [facility] [place] DIVISIONQuita
[2021-01-24 05:07] LABS: Appearance Urine Clear (Clear); Bacteria Urine Automated Negative (Negative); Bilirubin Urine Negative (Negative); Blood Urine Trace (Negative); Color Urine Dark Yellow; Glucose Urine UA Negative (Negative); Ketones Urine Trace (Negative); Leukocyte Esterase Urine Negative (Negative); Nitrite Urine Negative (Negative); Protein Urine 2+ (Negative); Specific Gravity Urine 1.027 (1.000-1.030); Urobilinogen Urine Negative (Negative)
[2021-01-24] MEDS: PIPERACILLIN/TAZOBACTAM 3.375 GM in DEXTROSE 5% 100 ML IV SCH ×3 (05:16→21:22)
[2021-01-24 05:22] LABS: Mucus Urine Present (None Prsent)
--- NOTE | 2021-01-24 06:59 | XRay Report ---
XR chest 1V portable CLINICAL HISTORY: Cough and shortness of breath. Sx c/w COVID-19 COMPARISON STUDY: 08/01/2020 FINDINGS: The heart is mildly enlarged. There is a right-sided A-Port catheter. There is no failure. There is no focal pulmonary consolidation. There are no pleural effusions.[There are minimal basilar atelectatic changes. IMPRESSION: Cardiomegaly. No acute findings. ACT 112: Negative or not required by law. Electronically signed by: Romaine Pate M.D. 01/24/2021 6:58 AM
[2021-01-24 07:19] LABS: Basophils # (auto) 0.01 K/uL (0-0.2); Basophils % (auto) 0.2 %; Eosinophils # (auto) 0.09 K/uL (0-0.5); Eosinophils % (auto) 1.8 %; Hematocrit (blood only) 29.9 % (42-52); Hemoglobin 9.5 g/dL (14.0-18.0); Immature Granulocytes # (auto) 0.01 K/uL (0.00-0.02); Immature Granulocytes % (auto) 0.2 %; Lymphocytes # (auto) 0.09 K/uL (1.2-3.4); Lymphocytes % (auto) 1.8 %; Mean Corpuscular Hemoglobin 30.6 pg (25-34); Mean Corpuscular Hgb Conc 31.8 g/dL (32-36); Mean Corpuscular Volume 96.5 fL (80-100); Mean Platelet Volume 8.9 fL (7.4-10.4); Monocytes # (auto) 0.22 K/uL (0.11-0.59); Monocytes % (auto) 4.3 %; Neutrophils # (auto) 4.66 K/uL (1.4-6.5); Neutrophils % (auto) 91.7 %; Platelet Count 122 K/uL (130-400); RDW Coefficient of Variation 16.9 % (11.5-14.5); White Blood Count 5.08 K/uL (4.8-10.8)
[2021-01-24] MEDS: ACYCLOVIR 400 MG TAB PO SCH ×2 (07:46→21:22)
[2021-01-24] MEDS: METOPROLOL SUCC 50MG EXT REL TAB PO SCH ×2 (07:47→21:25)
[2021-01-24] MEDS: DAPSONE 25 MG TAB PO SCH (07:48)
[2021-01-24] MEDS: FOLIC ACID 1 MG TAB PO SCH (07:48)
[2021-01-24] MEDS: ASPIRIN 81 MG ECTAB PO SCH (07:49)
[2021-01-24] MEDS: allopurinoL 100 MG TAB PO SCH (07:49)
[2021-01-24 07:52] LABS: BUN Creatinine Ratio 13.3 (10-20); Calcium 8.3 mg/dl (8.5-10.1); Creatinine Clr Calc Pharmacy 47.6 ml/min; Est GFR (African American) 43.8 ml/min; Est GFR (Non-African American) 37.8 ml/min; Magnesium 2.1 mg/dl (1.8-2.4); Potassium 4.2 mmol/L (3.5-5.1)
[2021-01-24 14:29] LABS: Estimated Average Glucose 68 mg/dl; Hemoglobin A1C < 4.0 % (4.5-5.6)
--- NOTE | 2021-01-24 16:41 | Electrocardiogram Report ---
Test Reason : Blood Pressure : / mmHG Vent. Rate : 114 BPM Atrial Rate : 120 BPM P-R Int : 000 ms QRS Dur : 094 ms QT Int : 338 ms P-R-T Axes : 000 -33 -01 degrees QTc Int : 465 ms Atrial fibrillation with rapid ventricular response Abnormal ECG When compared with ECG of 02-AUG-2020 07:01, Vent. rate has increased BY 39 BPM Nonspecific T wave abnormality has replaced inverted T waves in Inferior leads Confirmed by Asher Salazar ([id number]) on 01/24/2021 4:41:11 PM Referred By: REFERRED SELF Confirmed By:Rome Salazar
--- NOTE | 2021-01-24 22:25 | Hospitalist Progress Note ---
Date of Service January 24, 2021 Assessment & Plan (1) Fever: Plan: Fever of unknown origin History of hairy cell leukemia Recently received chemotherapy 1 month ago,diagnosed with pneumonia. COVID-19, procalcitonin, and WBC are normal Was started on IV Zosyn Blood culture collected in the ER pending Patient had a port placed by Dr. Valentin few weeks ago, and scheduled to remove it on Thursday We will consult surgery for possible port removal Continue antibiotics for now continue blood culture result, if blood culture is negative will DC antibiotic Continue monitor closely ALFONZO Creatinine admission 1.8 Continue IV fluid Creatinine improved to 1.7 Continue to avoid nephrotoxic agent Continue monitor BMP Hairy cell leukemia: Last month he had a bad reaction for chemo with renal failure requiring dialysis for 2 weeks. Currently, no plan for any further chemo. Will need to establish with oncology Will talk to surgery about to remove the IV port while inpatient History of atrial fibrillation: Rate controlled on Toprol-XL No plan for anticoagulation because of contraindication secondary to hairy cell leukemia with history of pancytopenia and hemolytic anemia. Hypertension: Continue his home medications 10 mg p.o. Continue monitor BP Peripheral edema He was recently started on torsemide but has not been taking it Continue to hold due to elevated creatinine Deep venous thrombosis prophylaxis: On SCD CODE STATUS full code DISPOSITION: We will discharge when medically stable Admission and Anticipated Discharge Date Admission Date: January 24, 2021 Subjective Patient was seen and examined for follow-up of fever Lying in bed with no distress Patient said that he feels much better He has been afebrile He would like to speak to surgery today to see while he is here if the port can remove Denies any chest pain, palpitation, dizziness, shortness of breath. Physical Exam Physical Exam: General- No acute distress Head- atraumatic Eyes- PERRL, EOMI, ENT- oropharynx clear Neck- supple, no JVD Lungs- clear to auscultation Heart- regular rhythm; no murmur Abdomen- normal bowel sounds, soft, nontender Extremities- no calf tenderness, + edema Neuro- alert, oriented x 3; PERRL, EOMI; no facial palsy; no dysarthria Skin- warm & dry Results & Data Results & Data ([facility]) Vital Signs (Past 12 Hours) Vital Signs Temp Pulse Pulse Resp BP BP Pulse Ox 01/24/21 21:26 105/60 01/24/21 19:07 37.1 C 87 18 131/75 95 01/24/21 15:32 79 01/24/21 14:00 36.9 C 75 20 126/68 93 01/24/21 11:00 36.8 C 82 18 103/66 93
[2021-01-25] MEDS: PIPERACILLIN/TAZOBACTAM 3.375 GM in DEXTROSE 5% 100 ML IV SCH ×3 (04:16→20:48)
[2021-01-25 07:57] LABS: Hemoglobin 8.4 g/dL (14.0-18.0); Mean Corpuscular Hemoglobin 30.3 pg (25-34); Mean Corpuscular Hgb Conc 31.1 g/dL (32-36); Mean Corpuscular Volume 97.5 fL (80-100); Mean Platelet Volume 8.7 fL (7.4-10.4); Platelet Count 100 K/uL (130-400); RDW Coefficient of Variation 16.5 % (11.5-14.5); RDW Standard Deviation 59.4 fL (36.4-46.3); Red Blood Count 2.77 M/uL (4.7-6.1); White Blood Count 2.39 K/uL (4.8-10.8)
[2021-01-25] MEDS: DAPSONE 25 MG TAB PO SCH (08:18)
[2021-01-25] MEDS: allopurinoL 100 MG TAB PO SCH (08:18)
[2021-01-25] MEDS: ACYCLOVIR 400 MG TAB PO SCH ×2 (08:18→20:48)
[2021-01-25] MEDS: METOPROLOL SUCC 50MG EXT REL TAB PO SCH ×2 (08:19→20:48)
[2021-01-25] MEDS: ASPIRIN 81 MG ECTAB PO SCH (08:19)
[2021-01-25] MEDS: FOLIC ACID 1 MG TAB PO SCH (08:19)
[2021-01-25 08:28] LABS: BUN Creatinine Ratio 11.3 (10-20); Creatinine Clr Calc Pharmacy 42.9 ml/min; Est GFR (African American) 38.7 ml/min; Est GFR (Non-African American) 33.4 ml/min; Potassium 4.1 mmol/L (3.5-5.1)
[2021-01-25] MEDS ORDERED: LIDOCAINE 1% LOCAL 20 ML VIAL ONE (10:10)
--- NOTE | 2021-01-25 10:14 | Surgery Consultation ---
Date of Consultation January 25, 2021 Assessment & Plan (1) Fever: unknown etiology resolved since admission blood cultures negative to date no sign of port infection (2) Hairy cell leukemia: has completed chemotherapy and port has not been used for 8 weeks, scheduled for removal on thursday Plan: Plan for removal of right chest aport under local anesthesia at bedside Informed consent obtained by Dr. brooks Okay to resume diet for lunch Will cancel port removal with Dr. Valentin as scheduled in OR on Thursday Dr. Brooks has seen and examined pt and obtained consent Supervising Physician Co-Signing Physician Notes Pt was seen and personally examined. Agree with history and physical as above. Pt has an exposed suture from prior dialysis catheter on left side which he would like removed as well as right sided port a cath which he is no longer using. No sign of active infection (no erythema, induration, fluctuance) but given fever, reasonable to remove. Consented for removal of port a cath - risks of bleeding, infection reviewed. History of Present Illness Reason for Consultation: aport removal, fever on admission Requesting Physician: Danuta Grissom MD Attending Physician: Danuta Grissom MD History of Present Illness Fredrick is a 70 year-old male who presented to hospital with fever. Fredrick has history of hairy cell leukemia and had right aport placement by Dr. Valentin about 4-5 months ago. The port has not been used recently and was scheduled for aport removal this Thursday at hospital with Dr. Valentin. Our services consulted today for port removal. Has no leukocytosis. Blood cultures have been negative so far. No fever since admission. Fredrick is not on any blood thinning agents. No signs of infection , redness, or pain at port site. Had dialysis catheter placed about 1 month ago at [facility] after he had acute kidney failure after a chemo treatment. Dialysis catheter has since been removed. Has small stitch sticking out of the incision. Allergies Allergy/AdvReac Type Severity Reaction Status Date / Time sulfamethoxazole Allergy Hives Verified 01/18/21 12:12 [From Bactrim] trimethoprim [From Bactrim] Allergy Hives Verified 01/18/21 12:12 Home Medications Medication Instructions Recorded Confirmed Type acyclovir 400 mg tablet 800 mg PO BID 06/19/20 01/18/21 History dapsone 100 mg tablet 100 mg PO QAM 06/19/20 01/18/21 History allopurinol 100 mg tablet 100 mg PO QAM 01/18/21 01/18/21 History aspirin 81 mg tablet,delayed 81 mg PO QAM 01/18/21 01/18/21 History release metoprolol succinate 100 mg 150 mg PO BID 01/18/21 01/18/21 History tablet,extended release 24 hr torsemide 10 mg tablet 10 mg PO DAILY 01/24/21 01/24/21 History Patient History Medical History Atrial fibrillation Follows with Dr. Hampton Chronic anemia Family history of malignant hyperthermia Fluid retention Legs/feet fluid retention + ALFONZO (requiring dialysis 11/2020 x2 weeks) r/t chemo drugs during [facility] hospitalization for PNA Hairy cell leukemia Chemo 35 years ago (recent recurrence) Temporomandibular joint disorder + clicking, no locking Thrombocytopenia Surgical History Family history of malignant hyperthermia Second cousin (no personal hx of anesthesia issues/no available general anesthesia records) History of cataract surgery Right History of colonoscopy History of cystoscopy History of tonsillectomy and adenoidectomy History of vascular access device A-port placement (05/07/20): MAC at [facility] (2 units platelets given in ASU preop) Tumor Benign tumor excisions from back Family History Brother Coronary heart disease Family hx colonic polyps Father Arrhythmia Cancer Prostate Family/Other Family history of diabetes mellitus NIECE Social History Smoking Status: Never smoker Second Hand Exposure: Yes (CHILDHOOD); Hx Alcohol Use: No Hx Substance Use: No Preferred Language: Urdu Communication Ability: Effective Senior Accounting Associate Required: No Beliefs That Will Affect Care: None Current Living Situation: Alone current occupational status: retired Other Information That Helps Us Care for You: No Feels Safe at Home: Yes Safety Concerns: Feels Safe At This Time Assistive Devices: None Physical Exam Constitutional: well developed and well nourished Respiratory: normal respiratory effort; no respiratory distress Cardiovascular: Rate/Rhythm: regular rate Chest (Breasts): Additional Comments: Right chest wall with port present, no erythema, induration, or fluctuance Skin: warm, dry, no rashes Neurologic: awake alert, and oriented Results & Data ([facility]) Vital Signs (Past 12 Hours) Vital Signs Temp Pulse Pulse Pulse Resp BP Pulse Ox 01/25/21 08:19 36.7 C 86 16 136/77 96 01/25/21 07:44 36.6 C 79 18 143/76 H 97 01/25/21 07:36 88 01/25/21 04:55 36.8 C 77 18 125/67 99 01/24/21 22:56 37.1 C 76 19 110/66 95 Laboratory Results 01/25/21 01/25/21 01/24/21 Range/Units 07:39 07:39 06:59 WBC 2.39 L (4.8-10.8) K/uL RBC 2.77 L (4.7-6.1) M/uL Hgb 8.4 L (14.0-18.0) g/dL Hct 27.0 L (42-52) % MCV 97.5 (80-100) fL MCH 30.3 (25-34) pg MCHC 31.1 L (32-36) g/dL RDW Std Deviation 59.4 H (36.4-46.3) fL RDW Coeff of Dale 16.5 H (11.5-14.5) % Plt Count 100 L (130-400) K/uL MPV 8.7 (7.4-10.4) fL Sodium 141 (136-145) mmol/L Potassium 4.1 (3.5-5.1) mmol/L Chloride 109 H (98-107) mmol/L Carbon Dioxide 28 (21-32) mmol/L Anion Gap 4.0 (3-11) BUN 22 H (7-18) mg/dl Creatinine 1.96 H (0.6-1.4) mg/dl Est Cr Clr Drug Dosing 42.9 ml/min Est GFR ( Amer) 38.7 ml/min Est GFR (Non-Af Amer) 33.4 ml/min BUN/Creatinine Ratio 11.3 (10-20) Glucose 95 (70-99) mg/dl Estimat Average Glucose 68 mg/dl Hemoglobin A1c < 4.0 L (4.5-5.6) % Calcium 8.0 L (8.5-10.1) mg/dl Microbiology 01/24/21 00:03 Aerobic Blood Culture - Preliminary Blood No growth in Aerobic bottle after 24 hours. Anaerobic Blood Culture - Preliminary No growth in Anaerobic bottle after 24 hours. 01/23/21 23:54 Aerobic Blood Culture - Preliminary Blood No growth in Aerobic bottle after 24 hours. Anaerobic Blood Culture - Preliminary No growth in Anaerobic bottle after 24 hours. (1) Hairy cell leukemia Leukemia Active/Remission status: in remission Qualified Code(s): C91.41 - Hairy cell leukemia, in remission
--- NOTE | 2021-01-25 11:06 | Operative Report ---
Post Operative Report Pre & Post Diagnosis possible sepsis, right port placement Operation Date: 01/28/21 07:15 <No data on this case meets the specified criteria> I identified the patient and participated in the time-out.: Yes Procedure removal of right sided port a catheter Operation Date: 01/28/21 07:15 <No data on this case meets the specified criteria> Surgeon Amelie Brooks MD Manager Switch ANNALEE Reed Estimated Blood Loss 1 Findings Consistent with Post-Op Diagnosis port removed completely Fluids none Specimens none Drains none Anesthesia Type Local Complications none Indications port in place, pt with fever, no longer using port. Consent signed fore removal Description of Procedure The right port site was prepped with betadine and draped. The incision was anesthetized with 1% lidocaine. The incision was reopened and the port identified. The holding sutures were cut and the scar tissue dissected. The port was removed completely. Pressure was held on the neck for 2 minutes. The wound was irrigated and noted to be hemostatic. The incision was closed with a running subcuticular 4-0 vicryl suture. Steristrips and a sterile dressing was applied. The PA assisted in retraction and closure of the wound. He tolerated the procedure well. The suture protruding from his left site of the dialysis site was cut. I attest to the content of the Intraoperative Record and any orders documented therein. Any exceptions are noted below.
--- NOTE | 2021-01-25 17:25 | Hospitalist Progress Note ---
Date of Service January 25, 2021 Assessment & Plan (1) Fever: Plan: Fever of unknown origin History of hairy cell leukemia Recently received chemotherapy 1 month ago,diagnosed with pneumonia. COVID-19, procalcitonin, and WBC are normal Was started on IV Zosyn Blood culture collected in the ER no growth Patient had a port placed by Dr. Valentin few weeks ago, and scheduled to remove it on Thursday Case discussed with surgery and access port removed today by Dr. Brooks, c atheter tip sent for culture Continue antibiotics for now until blood culture and catheter tip culture negative Continue monitor closely ALFONZO Creatinine admission 1.8 Creatinine 1.9 today, May be that his new baseline since patient was in dialysis for 2 weeks Continue to avoid nephrotoxic agent He said that he was supposed to see nephrology as an outpatient He was prescribed torsemide 10 mg by nephrology, but he did not start it yet Continue to hold it for now due to elevate creatinine Continue monitor BMP Hairy cell leukemia: Last month he had a bad reaction for chemo with renal failure requiring dialysis for 2 weeks. Currently, no plan for any further chemo. Will need to establish with oncology History of atrial fibrillation: Rate controlled on Toprol-XL No plan for anticoagulation because of contraindication secondary to hairy cell leukemia with history of pancytopenia and hemolytic anemia. Hypertension: Continue his home medications 10 mg p.o. Continue monitor BP Peripheral edema He was recently started on torsemide but has not been taking it Continue to hold torsemide due to elevated creatinine Deep venous thrombosis prophylaxis: On SCD CODE STATUS full code DISPOSITION: We will discharge when medically stable Admission and Anticipated Discharge Date Admission Date: January 24, 2021 Subjective Patient was seen and examined for follow-up of fever Lying in bed with no distress He has been afebrile Spoke to surgery team today and IV port removed at bedside by surgery dr. Brooks Denies any chest pain, palpitation, dizziness, shortness of breath. Physical Exam Physical Exam: General- No acute distress Head- atraumatic Eyes- PERRL, EOMI, ENT- oropharynx clear Neck- supple, no JVD Lungs- clear to auscultation Heart- regular rhythm; no murmur Abdomen- normal bowel sounds, soft, nontender Extremities- no calf tenderness, + edema Neuro- alert, oriented x 3; PERRL, EOMI; no facial palsy; no dysarthria Skin- warm & dry Results & Data Results & Data ([facility]) Vital Signs (Past 12 Hours) Vital Signs Temp Pulse Pulse Resp BP BP Pulse Ox 01/25/21 15:59 37.1 C 87 18 151/95 H 96 01/25/21 14:59 78 01/25/21 11:39 36.6 C 88 18 149/85 H 95 01/25/21 08:19 36.7 C 86 16 136/77 96 01/25/21 07:44 36.6 C 79 18 143/76 H 97 01/25/21 07:36 88
[2021-01-26] MEDS: PIPERACILLIN/TAZOBACTAM 3.375 GM in DEXTROSE 5% 100 ML IV SCH ×2 (04:56→14:02)
[2021-01-26 06:49] LABS: Hematocrit (blood only) 26.8 % (42-52); Hemoglobin 8.6 g/dL (14.0-18.0); Mean Corpuscular Hemoglobin 30.5 pg (25-34); Mean Corpuscular Hgb Conc 32.1 g/dL (32-36); Mean Platelet Volume 8.9 fL (7.4-10.4); Platelet Count 115 K/uL (130-400); RDW Coefficient of Variation 16.1 % (11.5-14.5); RDW Standard Deviation 56.6 fL (36.4-46.3); Red Blood Count 2.82 M/uL (4.7-6.1); White Blood Count 2.16 K/uL (4.8-10.8)
[2021-01-26 07:16] LABS: Calcium 8.4 mg/dl (8.5-10.1); Creatinine Clr Calc Pharmacy 50.7 ml/min; Est GFR (African American) 47.3 ml/min; Est GFR (Non-African American) 40.9 ml/min; Potassium 3.5 mmol/L (3.5-5.1)
[2021-01-26] MEDS: DAPSONE 25 MG TAB PO SCH (08:34)
[2021-01-26] MEDS: FOLIC ACID 1 MG TAB PO SCH (08:34)
[2021-01-26] MEDS: METOPROLOL SUCC 50MG EXT REL TAB PO SCH (08:34)
[2021-01-26] MEDS: ASPIRIN 81 MG ECTAB PO SCH (08:34)
[2021-01-26] MEDS: allopurinoL 100 MG TAB PO SCH (08:34)
[2021-01-26] MEDS: ACYCLOVIR 400 MG TAB PO SCH (08:34)
--- NOTE | 2021-01-26 13:03 | Hospitalist Progress Note ---
Date of Service January 26, 2021 Assessment & Plan (1) Fever: Plan: Fever of unknown origin History of hairy cell leukemia Recently received chemotherapy 1 month ago,diagnosed with pneumonia. COVID-19, procalcitonin, and WBC are normal Has been on IV Zosyn since admission Blood culture collected in the ER no growth Patient had a port placed by Dr. Valentin few weeks ago, and scheduled to remove it on Thursday Case discussed with surgery and access port removed today by Dr. Brooks, catheter tip sent for culture A-port tip showed coag negative staph with 4 Colonies only, no sensitivity to follow. Mostly contamination Will discontinue abx since blood cx showed no growth Discussed options with patient about to monitor for 24hrs off abx, before sending home Pt said that he prefers to go home and if he develops any fever to come back to the hospital Pt will continue monitor self for any fever or signs of infection ALFONZO Creatinine admission 1.8 Creatinine 1.6 today, creatinine 1-2 weeks ago was 1.7 seems to be his new baseline since patient was in dialysis for 2 weeks Continue to avoid nephrotoxic agent nephrology on board Ok from nephrology standpoint to discharge home Continue outpatient blood work Hairy cell leukemia: Last month he had a bad reaction for chemo with renal failure requiring dialysis for 2 weeks. Currently, no plan for any further chemo. Follow up outpatient with oncology History of atrial fibrillation: Rate controlled on Toprol-XL No plan for anticoagulation because of contraindication secondary to hairy cell leukemia with history of pancytopenia and hemolytic anemia. Hypertension: Continue his home medications metoprolol 150mg Continue monitor BP Peripheral edema He was recently started on torsemide but has not been taking it Ok to resume it on discharge, but pt he is reluctant to start it Deep venous thrombosis prophylaxis: On SCD CODE STATUS full code DISPOSITION: Discharge home today Admission and Anticipated Discharge Date Admission Date: January 24, 2021 Subjective Patient was seen and examined for follow-up of fever Sitting in bed with no distress Pt said that he feels fine He has been afebrile for more than 48hrs His blood cx is negative and the catheter port cx grew coag negative staph Denies any chest pain, palpitation, dizziness, shortness of breath. Physical Exam Physical Exam: General- No acute distress Head- atraumatic Eyes- PERRL, EOMI, ENT- oropharynx clear Neck- supple, no JVD Lungs- clear to auscultation Heart- regular rhythm; no murmur Abdomen- normal bowel sounds, soft, nontender Extremities- no calf tenderness, + edema Neuro- alert, oriented x 3; PERRL, EOMI; no facial palsy; no dysarthria Skin- warm & dry Results & Data Results & Data ([facility]) Vital Signs (Past 12 Hours) Vital Signs Temp Pulse Pulse Resp BP BP Pulse Ox 01/26/21 11:34 36.9 C 78 18 161/96 H 97 01/26/21 07:03 36.9 C 82 18 161/87 H 94 01/26/21 07:00 85 01/26/21 02:46 36.6 C 77 17 169/71 H 93
--- NOTE | 2021-02-07 08:03 | Discharge Summary ---
Date of Service January 26, 2021 Admission HPI Per Admitting Provider CHIEF COMPLAINT: Fever. HISTORY OF PRESENT ILLNESS: This is a 70-year-old male with past medical history significant for hairy cell leukemia diagnosed in 1988, history of thrombocytopenia, history of neutropenia, history of chronic kidney disease stage III, history of steroid-induced hyperglycemia. Recently in November, he was hospitalized in [facility] after he developed acute renal failure after chemotherapy, got dialysis for almost 2 weeks. Dialysis catheter was removed prior to hospital discharge. The patient also had developed new-onset atrial fibrillation during that hospitalization, but no anticoagulation because of severe history of anemia from the hairy cell leukemia and also chronic neutropenia and thrombocytopenia. Also recently, creatinine seems to be 1.7 and he has significant lower extremity edema thought to be because of recent renal failure and nephrology recently started on torsemide. The patient states he has not started to take it yet. The patient had two wisdom teeth extracted earlier in the day and was given amoxicillin, but after going home he developed fever to 101.8, so that is why he came here. In the ER, his temperature was 38.2, pulse was in 100s, no leukocytosis. Creatinine is 1.8. Because of ongoing fever and because of his underlying leukemia, the patient is getting admitted. The patient received a dose of cefepime in the ER. Currently, resting comfortably and hemodynamically stable. Denies any pain, no headache. Always has blurred visions. No earache. He has some runny nose since the chemo . Treated for pneumonia 1 month ago, and since then he some cough. Once in a while he brings up some bubble kind of phlegm. He did not eat much today. No difficulty swallowing. No chest pain. No shortness of breath, no nausea, no abdominal abigail n, normal bowel and bladder movements. Chronic lower extremity edema. Ambulates okay. Admission Exam Per Admitting Provider GENERAL: The patient is of moderate build, not in acute distress. VITAL SIGNS: Temperature 38.2, pulse 93, respiratory rate 22, blood pressure 129/95, oxygen 98% on room air. HEENT: Pupils equal, round and reactive to light. Oral mucosa moist. NECK: No JVD, no neck masses. CARDIOVASCULAR: S1 and S2 heard. Regular rate and rhythm. No murmur, no gallop. RESPIRATORY: Normal AP diameter. No accessory muscle use. No wheezing, no crackles. ABDOMEN: Soft, bowel sounds present, nontender, no distention. CENTRAL NERVOUS SYSTEM: Cranial nerves II-XII grossly intact, nonfocal. EXTREMITIES: Bilateral lower extremity edema, +2 edema present, no erythema seen. Principal Diagnosis Fever Acute kidney injury Hairy cell leukemia History of atrial fibrillation Hypertension Peripheral edema Discharge Exam General- No acute distress Head- atraumatic Eyes- PERRL, EOMI, ENT- oropharynx clear Neck- supple, no JVD Lungs- clear to auscultation Heart- regular rhythm; no murmur Abdomen- normal bowel sounds, soft, nontender Extremities- no calf tenderness, + edema Neuro- alert, oriented x 3; PERRL, EOMI; no facial palsy; no dysarthria Skin- warm & dry Discharge Data Allergies Allergy/AdvReac Type Severity Reaction Status Date / Time sulfamethoxazole Allergy Hives Verified 01/18/21 12:12 [From Bactrim] trimethoprim [From Bactrim] Allergy Hives Verified 01/18/21 12:12 Consultations 01/24/21 01:03 ED Decision to Admit Stat 01/25/21 09:02 Consult General Surgery Routine 01/25/21 12:44 Consult Nephrology Routine Procedures Performed Operation Date: 01/28/21 07:15 <No data on this case meets the specified criteria> Ordered Studies XR chest 1V portable CLINICAL HISTORY: Cough and shortness of breath. Sx c/w COVID-19 COMPARISON STUDY: 08/01/2020 FINDINGS: The heart is mildly enlarged. There is a right-sided A-Port catheter. There is no failure. There is no focal pulmonary consolidation. There are no pleural effusions.[There are minimal basilar atelectatic changes. IMPRESSION: Cardiomegaly. No acute findings. ACT 112: Negative or not required by law. Electronically signed by: Romaine Pate M.D. 01/24/2021 6:58 AM Dictated: 01/24/21656Transcribed: 01/24/21656 Hospital Course (1) Fever: Fever of unknown origin History of hairy cell leukemia Recently received chemotherapy 1 month ago,diagnosed with pneumonia. COVID-19, procalcitonin, and WBC are normal Has been on IV Zosyn since admission Blood culture collected in the ER no growth Patient had a port placed by Dr. Valentin few weeks ago, and scheduled to remove it on Thursday Case discussed with surgery and access port removed today by Dr. Brooks, catheter tip sent for culture A-port tip showed coag negative staph with 4 Colonies only, no sensitivity to follow. Mostly contamination Will discontinue abx since blood cx showed no growth Discussed options with patient about to monitor for 24hrs off abx, before sending home Pt said that he prefers to go home and if he develops any fever to come back to the hospital Pt will continue monitor self for any fever or signs of infection ALFONZO Creatinine admission 1.8 Creatinine 1.6 today, creatinine 1-2 weeks ago was 1.7 seems to be his new baseline since patient was in dialysis for 2 weeks Continue to avoid nephrotoxic agent nephrology on board Ok from nephrology standpoint to discharge home Continue outpatient blood work Hairy cell leukemia: Last month he had a bad reaction for chemo with renal failure requiring dialysis for 2 weeks. Currently, no plan for any further chemo. Follow up outpatient with oncology History of atrial fibrillation: Rate controlled on Toprol-XL No plan for anticoagulation because of contraindication secondary to hairy cell leukemia with history of pancytopenia and hemolytic anemia. Hypertension: Continue his home medications metoprolol 150mg Continue monitor BP Peripheral edema He was recently started on torsemide but has not been taking it Ok to resume it on discharge, but pt he is reluctant to start it Deep venous thrombosis prophylaxis: On SCD CODE STATUS full code DISPOSITION: Discharge home today Total Time Total Time Spent Total Time Spent (In Minutes): 35 minutes Discharge Plan Discharge Items Patient Disposition: Home - Self-Care Reason For Visit: FEVER Discharge Diagnosis: Fever Acute kidney injury Hairy cell leukemia History of atrial fibrillation Hypertension Peripheral edema Activity: Resume your previous activity Non-emergency contact: Primary Care Provider Call non-emergency contact if: you have any medication questions Follow-up/Referrals: Adrien Jones MD [Primary Care Provider] - Diet: Heart Healthy Addgabe Attending Provider Instructions: Follow up with your primary care provider within 1 week Follow up with nephrology Continue to avoid nephrotoxic agents Continue checking BMP to monitor your kidney function Seek medical attention if you develop any fever. 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 Do not be alarmed if they fall off on their own - You may shower, let water and soap run over incision and pat dry. - replace dressing if there is drainage present - You have a follow-up scheduled in surgery office in February, if incision is healing well and you have no concerns you can call to cancel appointment. - Surgical office number is [phone] Pending Studies at Discharge: No Stand-Alone Forms: [facility], Smoking Cessation Medications and DC Order Prescriptions: Continued acyclovir 400 mg Tablet 800 mg PO BID RF: 0 dapsone 100 mg Tablet 100 mg PO QAM RF: 0 allopurinol 100 mg Tablet 100 mg PO QAM RF: 0 aspirin 81 mg Tablet,Delayed Release (Dr/Ec) 81 mg PO QAM RF: 0 metoprolol succinate 100 mg Tablet Extended Release 24 Hr 150 mg PO BID RF: 0 torsemide 10 mg tablet 10 mg PO DAILY RF: 0 Discharge Orders: Discharge Order (Routine); Ordered 01/26/21 Ordered By: Danuta Grissom Admission Data Admit Date/Time: 01/24/21 01:54 Attending Provider: Danuta Grissom Admit Provider: Julio Selby Primary Care Provider: Adrien Jones Other Providers: Julio Selby ; Amelie Brooks ; Colt Griffiths Other Interventions: Discharge Summary Assessment (RN) Last Done: 01/26/21 13:49
== END 2021-01-26 14:36 | disposition home or self-care (01) | DRG 864 ==
LOC: ED 21:58 → 2N 01-24 01:54